=== PATIENT | male | born 1990 | race Caucasian/White ===

== ENCOUNTER → 2019-03-22 | Outpatient (CLI) | payer BC ==
[2019-03-22 17:58] LABS: BILIRUBIN,URINE NEGATIVE (NEGATIVE); CLARITY,URINE CLEAR; COLOR,URINE YELLOW; GLUCOSE, URINE (UA) NEGATIVE (NEGATIVE); KETONES,URINE NEGATIVE (NEGATIVE); LEUKOCYTE ESTERASE ,URINE NEGATIVE (NEGATIVE); NITRITE,URINE NEGATIVE (NEGATIVE); PH,URINE 5.5 (5-9); PROTEIN,URINE NEGATIVE (NEGATIVE); UROBILINOGEN,URINE 0.2 MG/DL (NORMAL)
[2019-03-22 19:58] LABS: ALANINE AMINOTRANSFERASE 35 U/L (0-55); ALKALINE PHOSPHATASE 81 U/L (40-136); BILIRUBIN,TOTAL 0.4 MG/DL (0.1-1.0); BUN/CREATININE RATIO 14; CALCIUM 9.1 MG/DL (8.5-10.1); CARBON DIOXIDE 24 MMOL/L (21-32); CHLORIDE 96 MMOL/L (98-107); CREATININE SERUM 1.06 MG/DL (0.60-1.30); GFR ESTIMATED > 60; GLUCOSE 146 MG/DL (70-105); POTASSIUM 3.8 MMOL/L (3.6-5.0); SODIUM 135 MMOL/L (135-145)
[2019-03-22 19:59] LABS: ALBUMIN 4.4 GM/DL (3.2-4.5); TOTAL PROTEIN 7.9 GM/DL (6.4-8.2)
== END ==
LOC: LAB FS 17:38
PROVIDERS: ATTEND Family Medicine
DX: R34 Anuria and oliguria (principal)
CPT/HCPCS: 36415; 80053; 81000; 96374

== ENCOUNTER 2019-04-16 06:56 | Emergency (ER) | payer BC ==
[~2019-04-16] VITALS: Ht 180.3 cm; Wt 1.7 kg
--- NOTE | 2019-04-16 07:03 | ED Headache ---
General Stated Complaint: MIGRAINE History of Present Illness Date Seen by Provider: Apr 16, 2019 Time Seen by Provider: 07:03 Initial Comments migraine headache Severity/Quality: moderate, throbbing Location: frontal Prior Headaches/Recent Trauma: occasional headaches Associated Symptoms: vision changes Allergies and Home Medications Allergies Coded Allergies: cefdinir (Verified Allergy, Unknown, 04/16/19) Home Medications [fioricet] , 1 TAB BID PRN Prescribed by: MARIE SCHNEIDER on 04/16/19 0732 Patient Home Medication List Home Medication List Reviewed: Yes Review of Systems Review of Systems Constitutional: no symptoms reported Eyes: Photophobia Ears, Nose, Mouth, Throat: no symptoms reported Respiratory: no symptoms reported Cardiovascular: no symptoms reported Gastrointestinal: no symptoms reported Genitourinary: no symptoms reported Musculoskeletal: no symptoms reported Skin: no symptoms reported Psychiatric/Neurological: See HPI, Headache All Other Systems Reviewed Negative Unless Noted: Yes Past Tbjdjrr-Ozitbm-[id number] Hx Patient Social History Recent Foreign Travel: No Contact w/Someone Who Travel: No Physical Exam Vital Signs Vital Signs - First Documented 04/16/19 07:02 Temp 97.0 Pulse 82 Resp 18 B/P (MAP) 125/64 (84) Pulse Ox 94 O2 Delivery Room Air Capillary Refill : Height, Weight, BMI Height: '" Weight: lbs. oz. kg; BMI Method: General Appearance: no apparent distress HEENT: photophobia Neck: full range of motion Cardiovascular: regular rate, rhythm Respiratory: no respiratory distress, no accessory muscle use Extremities: normal range of motion Psychiatric: alert, oriented x 3 Crainal Nerves: normal hearing, normal speech, PERRL Coordination/Gait: normal gait Motor/Sensory: no motor deficit, no sensory deficit Skin: normal color, warm/dry Lymphatic: no adenopathy Progress/Results/Core Measures Results/Orders My Orders Orders - MARIE SHARIF MD Ketorolac Injection (Toradol Injection) (04/16/19 07:30) Promethazine Injection (Phenergan Injec (04/16/19 07:30) Lorazepam Tablet (Ativan Tablet) (04/16/19 07:24) Ketorolac Injection (Toradol Injection) (04/16/19 07:30) Pending Discharge Order (04/16/19 07:39) Promethazine Injection (Phenergan Injec (04/16/19 07:30) Lorazepam Tablet (Ativan Tablet) (04/16/19 07:31) Im/Sub-Q Injection Non-Ab Ed (04/16/19 ) Vital Signs/I&O 04/16/19 04/16/19 07:02 07:45 Temp 97.0 97.0 Pulse 82 82 Resp 18 18 B/P (MAP) 125/64 (84) 125/64 (84) Pulse Ox 94 94 O2 Delivery Room Air Progress Progress Note : Time: 07:18 Progress Note Patient has history of infrequent migraine headaches. He has been evaluated by his primary care doctor in the past with CT scans and other testing but has never seen a neurologist. Most recent migraine episode was a urine half ago. Th is one started on . Today is Tuesday. Onset was about 4:15 S till about 7. This resolved with one ibuprofen. On Tuesday from 8:30 Tuesday morning it lasted for 1-2 hours and responded to Tylenol. Tuesday in the morning he woke with a headache work most of the day and went home and slept for 5 hours. 8 Advil and then that resolved. This morning he woke up with a headache that he didn't take any medications. In the past years, got shots is here now. He has a frontal headache and behind the eyes and because of the front part of his head. It is no nausea or vomiting. He does have photophobia. In the spring light sensitive. He works at a [employer]. He takes lisinopril and hydrochlorothiazide only for his hypertension. He is not on any prophylactic medications for his headache syndrome symptoms infrequent. His exam is unremarkable other than the photophobia. This is consistent with prior presentations and I think we can assist him with help for rest through the rest of the day. I will also given a prescription for Fioricet. I have advised him if he has persistent or recurring headaches he should discuss with his primary doctor a prophylactic management program. He is in agreement with this. Initial ECG Impression Date: Apr 16, 2019 Departure Impression Primary Impression: Migraine Qualified Codes: G43.009 - Migraine without aura, not intractable, without status migrainosus Disposition: 01 HOME, SELF-CARE Condition: Improved Departure-Patient Inst. Referrals: KILEY ZEE MD (PCP/Family) Primary Care Physician Scripts [fioricet] No Conflict Check 1 TAB BID PRN for headache for 10 Days, #30 TAB 0 Refills Prov: MARIE SHARIF MD 04/16/19 MARIE SHARIF MD Apr 16, 2019 07:03
[2019-04-16] MEDS ORDERED: LORazepam 0.5 MG (ATIVAN) TABLET PO STA (07:24)
[2019-04-16] MEDS ORDERED: KETOROLAC 30 MG/ML VIAL ONE (07:30)
[2019-04-16] MEDS ORDERED: PROMETHAZINE INJ 25 MG/ML (PHENERGAN) AMP IM ONE (07:30)
[2019-04-16] MEDS ORDERED: KETOROLAC 60 MG/2 ML VIAL IM ONE (07:30)
[2019-04-16] MEDS ORDERED: PROMETHAZINE INJ 25 MG/ML (PHENERGAN) AMP ONE (07:30)
[2019-04-16] MEDS ORDERED: LORazepam 0.5 MG (ATIVAN) TABLET ONE (07:31)
[2019-04-16] MEDS ORDERED: fioricet (07:32)
[2019-04-16 07:45] VITALS: BP 125/64
--- OUTSIDE RECORDS SUMMARY | 2019-04-16 17:25 | XMS REPORT ---
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 Name Role Phone DORINDA ROACH Unavailable PROBLEMS Type Condition ICD9-CM Code [id number] Code Onset Dates Condition Status SNOMED Code Problem Torn ACL (anterior cruciate ligament) 844.2 Aug, 0 86534914 Problem MRSA (methicillin resistant Staphylococcus aureus) 041.12 Mar, 0 685259775 Problem Periumbilical hernia 553.1 Apr, 0 130059887 Problem Morbid obesity with BMI of 40.0-44.9, adult 278.01 Jul, 0 735191903 Problem Syncope 780.2 Apr, 0 235237390 Problem Left knee pain 719.46 Sep, 0 854145165 Problem HTN (hypertension), benign 401.1 Feb, 0 36547707 Problem Attention deficit disorder without mention of hyperactivity F98.8 0 Problem Tobacco use Z72.0 Jul, 0 833461169 Problem Periumbilical hernia K42.9 Apr, 0 529853959 Problem Asthma J45.909 Apr, 0 975710677 Problem Pilonidal cyst 685.1 Mar, 0 63731111 Problem Precordial pain R07.2 Feb, 0 63524989 Problem Precordial pain 786.51 Feb, 0 82585987 Problem Asthma 493.90 Apr, 0 764337713 Problem Torn ACL (anterior cruciate ligament) S83.519A Aug, 0 12839734 Problem Parotiditis 527.2 Mar, 0 46392619 Problem Cigarette nicotine dependence, uncomplicated 305.1 Jul, 0 918953650 Problem Unspecified asthma(493.90) J45.909 0 25421030 Problem Parotiditis K11.20 Mar, 0 76071800 Problem HTN (hypertension), benign I10 Feb, 0 00985536 Problem Status post laparoscopic cholecystectomy V45.89 08 Apr, 2013 0 338550504 Problem Cigarette nicotine dependence, uncomplicated F17.210 Jul, 0 784543652 Problem Status post laparoscopic cholecystectomy Z90.49 08 Apr, 2013 0 210283044 Problem Syncope R55 14 Apr, 2014 0 224962004 Problem Dyslipidemia E78.5 Feb, 0 575521469 Problem Attention deficit disorder without mention of hyperactivity 314.00 0 46142565 Problem Essential hypertension I10 Active 57674353 Problem Tobacco use 305.1 Jul, 0 390692840 Problem Dyslipidemia 272.4 Feb, 0 881183426 Problem Pilonidal cyst L05.91 Mar, 0 20431715 Problem Morbid obesity with BMI of 40.0-44.9, adult E66.01 Jul, 0 543926836 Problem MRSA (methicillin resistant Staphylococcus aureus) A49.02 Mar, 0 741714010 Problem Left knee pain M25.562 Sep, 0 932135689 ALLERGIES Substance Reaction Event Type Date Status CEFDINIR Itching Drug Allergy Nov, Active ENCOUNTERS Encounter Location Date Diagnosis [address] [address] Feb, Decreased urine output R34 and Flank pain R10.[address] [address] Feb, [facility] WALK IN [facility] [address] [place] [address] Feb, [facility] WALK IN [address] [address] Feb, Abscess of back L02.212 ; Cellulitis of trunk, unspecified site of trunk L03.319 and Morbid obesity E66.[address] [address] Feb, [address] [address] January, Essential hypertension I10 and Morbid obesity E66.01 [facility]ALK IN [facility] [address] [place] [address] Nov, Acute diffuse otitis externa of left ear H60.312 and Morbid obesity E66.01 [facility] [place] [address] [place] [address] Nov, [facility] [id number] [address] Aug, [facility] [address] [address] Aug, [facility] [address] [address] Sep, Adjustment disorder with mixed anxiety and depressed mood F43.23 ; Generalized anxiety disorder F41.1 and Major depression, recurrent F33.9 [facility] [id number] [address] Jun, [facility] [address] [address] Jun, IMMUNIZATIONS No Known Immunizations SOCIAL HISTORY Never Assessed REASON FOR VISIT left ear pain with drainagex 24 hr [facility] PLAN OF CARE Activity Details Follow Up if not improving with PCP or reg follow up Reason: VITAL SIGNS Height 70 in 2018-12-10 Weight 314 lbs 2018-12-10 Temperature 97.9 degrees Fahrenheit 2018-12-10 Heart Rate 84 bpm 2018-12-10 Respiratory Rate 18 2018-12-10 Oximetry 98 % 2018-12-10 BMI 45.05 kg/m2 2018-12-10 Blood pressure systolic 148 mmHg 2018-12-10 Blood pressure diastolic 84 mmHg 2018-12-10 MEDICATIONS Medication Instructions Dosage Frequency Start Date End Date Duration Status Lisinopril-Hydrochlorothiazide 20-25 MG Orally Once a day 1 tablet 24h 15 Nov, 2018 90 days Active Ofloxacin 0.3 % Otic every 12 hrs 10 drops into affected ear 12h 17 Nov, 2018 7 day(s) Active RESULTS No Results PROCEDURES No Known procedures INSTRUCTIONS MEDICATIONS ADMINISTERED No Known Medications MEDICAL (GENERAL) HISTORY Type Description Date Medical History hypertension Surgical History cholecystectomy Surgical History wisdom teeth extraction Surgical History vasectomy Hospitalization History see surgeries
--- OUTSIDE RECORDS SUMMARY | 2019-04-16 17:26 | XMS REPORT ---
Author Author KILEY ZEE Organization [facility] Address [address] [place] [address] Care Team Providers Care Red Leader Name Role Phone KILEY ZEE Unavailable PROBLEMS Type Condition ICD9-CM Code GID18-DO Code Onset Dates Condition Status SNOMED Code Problem Torn ACL (anterior cruciate ligament) 844.2 Aug, 0 54834486 Problem MRSA (methicillin resistant Staphylococcus aureus) 041.12 Mar, 0 976943149 Problem Periumbilical hernia 553.1 Apr, 0 938173305 Problem Morbid obesity with BMI of 40.0-44.9, adult 278.01 Jul, 0 235751765 Problem Syncope 780.2 Apr, 0 128238041 Problem Left knee pain 719.46 Sep, 0 453682355 Problem HTN (hypertension), benign 401.1 Feb, 0 76829088 Problem Attention deficit disorder without mention of hyperactivity F98.8 0 Problem Tobacco use Z72.0 Jul, 0 440835015 Problem Periumbilical hernia K42.9 Apr, 0 937898586 Problem Asthma J45.909 Apr, 0 028422428 Problem Pilonidal cyst 685.1 Mar, 0 57103529 Problem Precordial pain R07.2 Feb, 0 73915581 Problem Precordial pain 786.51 Feb, 0 16167181 Problem Asthma 493.90 Apr, 0 535500222 Problem Torn ACL (anterior cruciate ligament) S83.519A Aug, 0 87077075 Problem Parotiditis 527.2 Mar, 0 27605637 Problem Cigarette nicotine dependence, uncomplicated 305.1 Jul, 0 236044013 Problem Unspecified asthma(493.90) J45.909 0 50297904 Problem Parotiditis K11.20 Mar, 0 64399233 Problem HTN (hypertension), benign I10 Feb, 0 92503405 Problem Status post laparoscopic cholecystectomy V45.89 08 Apr, 2013 0 414650282 Problem Cigarette nicotine dependence, uncomplicated F17.210 Jul, 0 774110850 Problem Status post laparoscopic cholecystectomy Z90.49 08 Apr, 2013 0 175636207 Problem Syncope R55 14 Apr, 2014 0 624075591 Problem Dyslipidemia E78.5 Feb, 0 544783289 Problem Attention deficit disorder without mention of hyperactivity 314.00 0 48938139 Problem Essential hypertension I10 Active 31882735 Problem Tobacco use 305.1 Jul, 0 567168870 Problem Dyslipidemia 272.4 Feb, 0 122808739 Problem Pilonidal cyst L05.91 13 Mar, 2011 0 12613765 Problem Morbid obesity with BMI of 40.0-44.9, adult E66.01 Jul, 0 371753886 Problem MRSA (methicillin resistant Staphylococcus aureus) A49.02 Mar, 0 653462487 Problem Left knee pain M25.562 Sep, 0 663929884 ALLERGIES No Information ENCOUNTERS Encounter Location Date Diagnosis [address] [address] Feb, Decreased urine output R34 and Flank pain R10.[address] [address] Feb, [facility] [address] [place] [address] Feb, [facility]ALK IN [address] [place] [address] Feb, Abscess of back L02.212 ; Cellulitis of trunk, unspecified site of trunk L03.319 and Morbid obesity E66.[address] [address] Feb, [address] [address] January, Essential hypertension I10 and Morbid obesity E66.01 [facility]ALK IN [facility] [address] [place] [address] Nov, Acute diffuse otitis externa of left ear H60.312 and Morbid obesity E66.[address] [address] Nov, [facility] [id number] [address] Aug, [facility] [id number] [address] Aug, [facility] [address] [place] [address] Sep, Adjustment disorder with mixed anxiety and depressed mood F43.23 ; Generalized anxiety disorder F41.1 and Major depression, recurrent F33.9 [facility] [id number] [address] Jun, [facility] [id number] [address] Jun, IMMUNIZATIONS No Known Immunizations SOCIAL HISTORY Never Assessed REASON FOR VISIT med refill PLAN OF CARE VITAL SIGNS MEDICATIONS Medication Instructions Dosage Frequency Start Date End Date Duration Status Lisinopril-Hydrochlorothiazide 20-25 MG Orally Once a day 1 tablet 24h Nov, 90 days Active RESULTS No Results PROCEDURES No Known procedures INSTRUCTIONS MEDICATIONS ADMINISTERED No Known Medications MEDICAL (GENERAL) HISTORY Type Description Date Medical History hypertension Surgical History cholecystectomy Surgical History wisdom teeth extraction Surgical History vasectomy Hospitalization History see surgeries
--- OUTSIDE RECORDS SUMMARY | 2019-04-16 17:26 | XMS REPORT | Continuity of Care Document ---
Author Organization Unknown Address Unknown Allergies There is no data. Medications There is no data. Problems There is no data. Procedures There is no data. Results Test Result Range LIPID PANEL - 02/16/19 14:00 CHOLESTEROL, TOTAL 243 mg/dL <200 HDL CHOLESTEROL 44 mg/dL >40 TRIGLYCERIDES 149 mg/dL <150 LDL-CHOLESTEROL 170 mg/dL (calc) NRG CHOL/HDLC RATIO 5.5 (calc) <5.0 NON HDL CHOLESTEROL 199 mg/dL (calc) <130 CMP - 02/16/19 14:00 GLUCOSE 97 mg/dL 65-99 UREA NITROGEN (BUN) 14 mg/dL 7-25 CREATININE 1.03 mg/dL 0.60-1.35 eGFR NON-AFR. IRISH 97 mL/min/1.73m2 > OR=60 eGFR 112 mL/min/1.73m2 > OR=60 BUN/CREATININE RATIO NOT APPLICABLE (calc) 6-22 SODIUM 136 mmol/L 135-146 POTASSIUM 3.9 mmol/L 3.5-5.3 CHLORIDE 99 mmol/L 98-110 CARBON DIOXIDE 26 mmol/L 20-32 CALCIUM 9.6 mg/dL 8.6-10.3 PROTEIN, TOTAL 7.5 g/dL 6.1-8.1 ALBUMIN 4.7 g/dL 3.6-5.1 GLOBULIN 2.8 g/dL (calc) 1.9-3.7 ALBUMIN/GLOBULIN RATIO 1.7 (calc) 1.0-2.5 BILIRUBIN, TOTAL 0.5 mg/dL 0.2-1.2 ALKALINE PHOSPHATASE 76 U/L 40-115 AST 24 U/L 10-40 ALT 41 U/L 9-46 CULTURE, ANAEROBIC AND AEROBIC - 02/28/19 18:47 CULTURE, ANAEROBIC BACTERIA W/GRAM STAIN SEE NOTE NRG CULTURE, AEROBIC BACTERIA SEE NOTE NRG Encounters ACCT No. Visit Date/Time Discharge Status Pt. Type Provider Facility Loc./Unit Complaint [id number] 02/28/2019 18:00:00 02/28/2019 23:59:59 [facility] Outpatient KILEY ZEE [facility] [id number] 02/28/2019 18:00:00 Document Registration [id number] 02/16/2019 13:30:00 Document Registration
== END 2019-04-16 07:45 | disposition home or self-care (01) ==
LOC: EDUNIT# 06:56 → ER FS 06:57
DX: G43.909 Migraine, unspecified, not intractable, without status migrainosus (principal); Z88.1 Allergy status to other antibiotic agents
CPT/HCPCS: 96372; 99284

== ENCOUNTER 2019-10-29 12:47 | Emergency (ER) | payer BC ==
[~2019-10-29] VITALS: Ht 180 cm; Wt 148.5 kg
[~2019-10-29 12:47] MED LIST: fioricet
[2019-10-29] MEDS ORDERED: RT-ALBUTEROL/IPRATROPIUM 3 ML (DUONEB) VIAL INH ONE (13:00)
[2019-10-29] MEDS ORDERED: predniSONE 20 MG TAB PO ONE (13:00)
--- NOTE | 2019-10-29 13:03 | ED Respiratory ---
General Chief Complaint: Respiratory Problems Stated Complaint: SOB Source: patient, family History of Present Illness Date Seen by Provider: Oct 29, 2019 Time Seen by Provider: 12:59 Initial Comments Patient presents with 1 month of shortness of air and wheezing. Symptoms have not resolved, although he has seen his doctor more than once and has been given a burst of steroids twice with some improvement although no resolution. He denies fever or chills. Wheezing and shortness of air worse with exertion. He does have a history of asthma as a child, however has not had this type of wheezing and shortness of air as an adult. He does admit he was a smoker and quit 4 months ago and has been doing fine up until now. Modifying Factors: Worse With Activity; Improves With Albuterol Inhaler Associated Symptoms: No chest pain/soreness; cough; No fever/chills, No nasal congestion, No nasal drainage; shortness of breath; No sinus infection, No sore throat; wheezing Allergies and Home Medications Allergies Coded Allergies: cefdinir (Verified Allergy, Unknown, 04/16/19) Home Medications Fluticasone Propion/Salmeterol 1 Each Blst.w.dev, 1 EACH IH BID Prescribed by: KAL HERRERASTYA on 10/29/19 1330 Ipratropium/Albuterol Sulfate 3 Ml Ampul.neb, 3 ML IH Q6H PRN for SHORTNESS OF BREATH Prescribed by: KAL HERRERASTYA on 10/29/19 1330 Prednisone 50 Mg Tab, 50 MG PO DAILY Prescribed by: KAL HERRERASTYA on 10/29/19 1330 [fioricet] , 1 TAB BID PRN Prescribed by: MARIE SCHNEIDER on 04/16/19 0732 Patient Home Medication List Home Medication List Reviewed: Yes Review of Systems Review of Systems Constitutional: see HPI; No dizziness, No fever, No malaise, No weakness EENTM: see HPI, no symptoms reported Respiratory: see HPI, cough, dyspnea on exertion, short of breath, wheezing Cardiovascular: see HPI; No chest pain, No palpitations Gastrointestinal: No abdominal pain, No loss of appetite, No nausea, No vomiting Musculoskeletal: No back pain, No joint pain Skin: No change in color, No pruritus, No rash Past Oqatmrg-Rqshod-Vljfpd Hx Past Med/Social Hx: Reviewed Nursing Past Med/Soc Hx Patient Social History Alcohol Use: Denies Use Recreational Drug Use: No Smoking Status: Former Smoker (quit Jun 2019) Type Used: Cigarettes 2nd Hand Smoke Exposure: No Recent Foreign Travel: No Recent Hopitalizations: No Physical Abuse: No Sexual Abuse: No Mistreated: No Fear: No Seasonal Allergies Seasonal Allergies: No Past Medical History Surgeries: Yes ([place] teeth removal) Gallbladder Respiratory: No Cardiac: Yes Hypertension Neurological: No Genitourinary: No Gastrointestinal: No Musculoskeletal: No Endocrine: No HEENT: No Cancer: No Psychosocial: No Integumentary: No Blood Disorders: No Physical Exam Vital Signs - First Documented 10/29/19 12:56 Temp 37.1 Pulse 114 Resp 20 B/P (MAP) 178/90 (119) Pulse Ox 93 O2 Delivery Room Air Capillary Refill : Height: 5'11.00" Weight: 3lbs. 11.0oz. 1.627468dd; BMI Method:Stated General Appearance: WD/WN, no apparent distress; No mild distress HEENT: PERRL/EOMI, normal ENT inspection, TMs normal, pharynx normal Neck: non-tender, supple, normal inspection Respiratory: chest non-tender, no respiratory distress, no accessory muscle use, decreased breath sounds; No crackles; wheezing (audible wheezes throughout. ) Extremities: non-tender, normal inspection, no pedal edema, normal capillary refill Progress/Results/Core Measures Suspected Sepsis SIRS Temperature: Pulse: Respiratory Rate: Blood Pressure / Mean: Results/Orders My Orders Orders - ROVENSTINE,KAL L DO Prednisone Tablet (Deltasone Tablet) (10/29/19 13:00) Albuterol/Ipra Inhalation Soln (Duoneb I (10/29/19 13:00) Svn Small Volume Nebulizer (10/29/19 12:58) Chest Pa/Lat (2 View) (10/29/19 13:00) Medications Given in ED Current Medications Medications Dose Ordered Sig/Marla Route Start Time Stop Time Status Last Admin Dose Admin Albuterol/ Ipratropium 3 ml ONCE ONCE INH 10/29/19 13:00 10/29/19 13:01 DC 10/29/19 13:04 3 ML Prednisone 50 mg ONCE ONCE PO 10/29/19 13:00 10/29/19 13:01 DC 10/29/19 13:03 50 MG Vital Signs/I&O 10/29/19 10/29/19 12:56 13:47 Temp 37.1 37.1 Pulse 114 101 Resp 20 18 B/P (MAP) 178/90 (119) 148/62 Pulse Ox 93 93 O2 Delivery Room Air Room Air Capillary Refill : Progress Note : Time: 13:25 Progress Note Mild to moderate clinical improvement after Duoneb. Discussed rx's for increased oral steroid and adding an inhaled steroid to use for a few weeks. Also adding duoneb solution (as he has a nebulizer at home) 1345 Much better, states feeling great. RE-examined and still w exp wheezes and rhonchi, but much improved aeration. Departure Impression Primary Impression: Asthma with exacerbation Qualified Codes: J45.41 - Moderate persistent asthma with (acute) exacerbation Disposition: HOME, SELF-CARE Condition: Improved Departure-Patient Inst. Referrals: KILEY ZEE MD (PCP/Family) Primary Care Physician Patient Instructions: Asthma in Adults, Rescue vs Controller Inhalers, Inhaled Corticosteroid Medicines Add. Discharge Instructions: See your Doctor in 3 days if you are not improving, otherwise in 1 week. Go to the nearest ER if you are worse. All discharge instructions reviewed with patient and/or family. Voiced understanding. Scripts Prednisone (Prednisone) 50 Mg Tab 50 MG PO DAILY, #10 TAB Prov: SHARONSTKAL PANDYA DO 10/29/19 Ipratropium/Albuterol Sulfate (Iprat-Albut 0.5-3(2.5) mg/3 ml) 3 Ml Ampul.neb 3 ML IH Q6H PRN for SHORTNESS OF BREATH, #30 EACH Prov: SHARONSTINEKAL L DO 10/29/19 Fluticasone Propion/Salmeterol (Fluticasone-Salmeterol 250-50) 1 Each Blst.w.dev 1 EACH IH BID, #1 INHALER Prov: SHARONSTINEKAL L DO 10/29/19 Work/School Note: Work Release Form Date Seen in the Emergency Department: Oct 29, 2019 Return to Work: Oct 30, 2019 Restrictions: No Restrictions SHARONSTKAL PANDYA DO Oct 29, 2019 13:03
--- NOTE | 2019-10-29 13:23 | Diagnostic Imaging Report ---
INDICATION: Cough and wheezing. COMPARISON: None. FINDINGS: Frontal and lateral views of the chest demonstrate normal heart size and pulmonary vascularity. The lungs are clear. There are no signs of infiltrate, pleural effusions, or pneumothoraces. The visualized osseous structures show no acute abnormalities. IMPRESSION: No acute process. No signs of infiltrates, effusions, or pneumothoraces. Dictated by: Dictated on workstation # [id number]
[2019-10-29] MEDS ORDERED: PRD50T PO (13:30)
[2019-10-29] MEDS ORDERED: IPRA3AMP31 IH (13:30)
[2019-10-29] MEDS ORDERED: FLUT1BLS12 IH (13:30)
[2019-10-29 13:47] VITALS: BP 148/62
== END 2019-10-29 13:42 | disposition home or self-care (01) ==
LOC: EDUNIT# 12:47 → ER FS 12:48
DX: J45.901 Unspecified asthma with (acute) exacerbation (principal); I10 Essential (primary) hypertension; Z88.1 Allergy status to other antibiotic agents; Z87.891 Personal history of nicotine dependence
CPT/HCPCS: 71046

== ENCOUNTER 2019-11-11 16:20 | Emergency (ER) | payer BC ==
[~2019-11-11] VITALS: Ht 180.3 cm; Wt 149.0 kg
[~2019-11-11 16:20] MED LIST changes: +FLUT1BLS12 IH; +IPRA3AMP31 IH; +PRD50T PO
--- NOTE | 2019-11-11 16:46 | ED General ---
General Chief Complaint: Cough/Cold/Flu Symptoms Stated Complaint: SOA Source of Information: Patient History of Present Illness Date Seen by Provider: Nov 11, 2019 Time Seen by Provider: 16:46 Initial Comments Patient is a 29-year-old male with past medical history significant for asthma who comes to the emergency department tonight complaining of exacerbation type symptoms. He does use nebulized solution at home and he ran out of his medications earlier this evening. He complains of being ill over the last week. He had been treated with prednisone last week along with a azithromycin. He completed his prednisone over 5 days earlier. No fever or chills. His cough is not productive. It is wheezy. He overall feels improved compared to last week but his asthma symptoms have worsened since stopping the prednisone. No chest pain. Allergies and Home Medications Allergies Coded Allergies: cefdinir (Verified Allergy, Unknown, 04/16/19) Home Medications Fluticasone Propion/Salmeterol 1 Each Blst.w.dev, 1 EACH IH BID Prescribed by: KAL BARFIELD on 10/29/19 1330 Ipratropium/Albuterol Sulfate 3 Ml Ampul.neb, 3 ML IH Q6H PRN for SHORTNESS OF BREATH Prescribed by: KAL BARFIELD on 10/29/19 1330 Prednisone 50 Mg Tab, 50 MG PO DAILY Prescribed by: KAL BARFIELD on 10/29/19 1330 [fioricet] , 1 TAB BID PRN Prescribed by: MARIE SCHNEIDER on 04/16/19 0732 Patient Home Medication List Home Medication List Reviewed: Yes Review of Systems Review of Systems Constitutional: no symptoms reported EENTM: no symptoms reported Respiratory: see HPI Cardiovascular: no symptoms reported Genitourinary: no symptoms reported Musculoskeletal: no symptoms reported Skin: no symptoms reported All Other Systems Reviewed Negative Unless Noted: Yes Past Bdlcdwn-Syffmm-Cmbrgx Hx Patient Social History Type Used: Cigarettes 2nd Hand Smoke Exposure: No Recent Hopitalizations: No Seasonal Allergies Seasonal Allergies: No Past Medical History Surgeries: Yes ([place] teeth removal) Gallbladder Respiratory: No Cardiac: Yes Hypertension Neurological: No Genitourinary: No Gastrointestinal: No Musculoskeletal: No Endocrine: No HEENT: No Cancer: No Psychosocial: No Integumentary: No Blood Disorders: No Physical Exam Vital Signs Capillary Refill : Height, Weight, BMI Height: 5'11.00" Weight: 3lbs. 11.0oz. 1.912952cc; 45.00 BMI Method:Stated General Appearance: No Apparent Distress, WD/WN HEENT: PERRL/EOMI Neck: Full Range of Motion Respiratory: Other (mild increased work of breathing. Wheezes bilaterally in all [place].) Cardiovascular: Regular Rate, Rhythm Extremity: Normal Capillary Refill Neurologic/Psychiatric: Alert, Oriented x3 Progress/Results/Core Measures Suspected Sepsis SIRS Temperature: Pulse: Respiratory Rate: Blood Pressure / Mean: Results/Orders Micro Results Microbiology 11/11/19 Influenza Types A,B Antigen (LEANDRO) - Final, Complete My Orders Orders - CRISTIAN PATRICIA DO Influenza A And B Antigens (11/11/19 16:46) Prednisone Tablet (Deltasone Tablet) (11/11/19 17:15) Albuterol/Ipra Inhalation Soln (Duoneb I (11/11/19 17:15) Svn Small Volume Nebulizer (11/11/19 17:12) Albuterol Pre-Mix Nebs (Rt) (Proventil (11/11/19 17:30) Svn Small Volume Nebulizer (11/11/19 17:28) Albuterol Pre-Mix Nebs (Rt) (Proventil (11/11/19 18:30) Svn Small Volume Nebulizer (11/11/19 18:30) Medications Given in ED Current Medications Medications Dose Ordered Sig/Marla Route Start Time Stop Time Status Last Admin Dose Admin Albuterol Sulfate 2.5 mg ONCE ONCE INH 11/11/19 17:30 11/11/19 17:31 DC 11/11/19 17:53 2.5 MG Albuterol/ Ipratropium 3 ml ONCE ONCE INH 11/11/19 17:15 11/11/19 17:16 DC 11/11/19 17:38 3 ML Prednisone 60 mg ONCE ONCE PO 11/11/19 17:15 11/11/19 17:16 DC 11/11/19 17:38 60 MG Vital Signs/I&O Capillary Refill : Progress Note : Time: 17:15 Progress Note ED summary: Patient is a 29-year-old male with known history of asthma. He comes to the ER with exacerbation. He has already been treated with a course of antibiotics. In the ER, he is given 3 total nebulized treatments. His symptoms subjectively improved and his lung sounds are clear at the time of discharge. He is requesting refill of his albuterol nebulized solution. No indication for additional antibiotics today but we will put him on another course of prednisone at home. He was given the first dose in the ER. Incidentally, the patient states he misplaced his blood pressure medication. He normally takes Zestoretic /. A refill of this is provided for him this evening as he is noted to have high blood pressure. Patient is agreeable to the discharge plan of care. All of his questions were answered. Departure Impression Primary Impression: Asthma exacerbation Disposition: HOME, SELF-CARE Condition: Improved Departure-Patient Inst. Referrals: KILEY ZEE MD (PCP/Family) Primary Care Physician CRISTIAN PATRICIA DO Nov 11, 2019 16:46
[2019-11-11] MEDS ORDERED: predniSONE 20 MG TAB PO ONE (17:15)
[2019-11-11] MEDS ORDERED: RT-ALBUTEROL/IPRATROPIUM 3 ML (DUONEB) VIAL INH ONE (17:15)
[2019-11-11] MEDS ORDERED: RT-ALBUTEROL SULF 2.5 MG/3 ML PRE-MIX VIAL INH ONE ×2 (17:30→18:30)
[2019-11-11] MEDS ORDERED: LISI-593 PO (18:51)
[2019-11-11] MEDS ORDERED: PRD20T PO (18:51)
[2019-11-11] MEDS ORDERED: ALBU2.5V4 INH (18:51)
[2019-11-11 19:06] VITALS: BP 152/107
== END 2019-11-11 19:06 | disposition home or self-care (01) ==
LOC: EDUNIT# 16:20 → ER FS 16:21
DX: J45.901 Unspecified asthma with (acute) exacerbation (principal); Z88.1 Allergy status to other antibiotic agents; Z79.51 Long term (current) use of inhaled steroids
CPT/HCPCS: 87804; 94640

== ENCOUNTER → 2019-11-16 | Outpatient (CLI) | payer BC ==
[~2019-11-16] MED LIST changes: +ALBU2.5V4 INH; +LISI-593 PO; +PRD20T PO
--- NOTE | 2019-11-16 11:44 | Diagnostic Imaging Report ---
Indication: Shortness of breath PA and lateral chest There appears be some patchy infiltrate in the right lower lateral chest. Heart size and pulmonary vasculature are normal. Lungs are clear. There are no effusions or pneumothoraces. IMPRESSION: There is a patchy alveolar opacity in the right lung suspicious for pneumonia. Dictated by: Dictated on workstation # [id number]
== END ==
LOC: RAD FS 11:30
PROVIDERS: ATTEND Family Medicine
DX: R06.02 Shortness of breath (principal); R06.2 Wheezing; R91.8 Other nonspecific abnormal finding of lung field
CPT/HCPCS: 71046

== ENCOUNTER 2020-02-12 10:23 | Observation (INO) | payer BC ==
[~2020-02-12] VITALS: Ht 180.3 cm; Wt 148.6 kg
[2020-02-12] MEDS ORDERED: ASPIRIN 81 MG CHEW (CHILDREN'S ASA) PO ONE (10:45)
[2020-02-12] MEDS ORDERED: NS IV 1000 ML 1,000 ML IV SCH (10:45)
--- NOTE | 2020-02-12 10:47 | ED Cardiac General ---
History of Present Illness General Chief Complaint: Chest Pain Stated Complaint: NAUSEA; FEELS LIKE HE IS GOING TO PASS OUT Source: patient Exam Limitations: no limitations History of Present Illness Date Seen by Provider: February 12, 2020 Time Seen by Provider: 10:40 Initial Comments Patient presents to the ER following an episode of chest pressure which began at work couple hours prior to arrival. 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 Did have some sweating without nausea vomiting. Patient states this typically happens when he forgets to take his blood pressure medication, so he went home to take his blood pressure medication (lisinopril 20/HCTZ 25). States that afterwards the chest pressure was relieved somewhat, but he felt nauseated and like he was going to pass out so he came to the ER. Patient states this does happen when he forgets to take his blood pressure medicine, although he never checks his blood pressure he has assumed that it was high. Denies any history of heart disease, however he has seen a doper operator and was just told he needed to lose weight and he never followed up. Does relate a significant family history of heart disease and had 2 brothers who had heart attacks and his mother who also has heart disease. Allergies and Home Medications Allergies Coded Allergies: cefdinir (Verified Allergy, Unknown, 02/12/20) Home Medications Famotidine 20 Mg Tablet, 20 MG PO DAILY, (Reported) Lisinopril/Hydrochlorothiazide 1 Each Tablet, 1 EA PO DAILY, (Reported) Patient Home Medication List Home Medication List Reviewed: Yes Review of Systems Review of Systems Constitutional: see HPI, diaphoresis, dizziness; No fever; malaise; No weakness EENTM: No Symptoms Reported Respiratory: No Symptoms Reported; Denies Cough, Denies Shortness of Air, Denies Stridor, Denies Wheezing Cardiovascular: See HPI, Chest Pain; Denies Edema, Denies Irregular Heart Rate; Lightheadedness; Denies Palpitations, Denies Syncope Gastrointestinal: Denies Abdominal Pain; Nausea; Denies Poor Appetite, Denies Vomiting Musculoskeletal: No back pain, No joint pain Skin: No change in color, No lesions, No lumps, No rash Past Ovbluok-Dhtvvr-Smuzos Hx Past Med/Social Hx: Reviewed Nursing Past Med/Soc Hx Patient Social History Type Used: Cigarettes 2nd Hand Smoke Exposure: No Recent Hopitalizations: No Seasonal Allergies Seasonal Allergies: No Past Medical History Surgeries: Yes ([place] teeth removal) Gallbladder Respiratory: No Cardiac: Yes Hypertension Neurological: No Genitourinary: No Gastrointestinal: No Musculoskeletal: No Endocrine: No HEENT: No Cancer: No Psychosocial: No Integumentary: No Blood Disorders: No Physical Exam Vital Signs Vital Signs - First Documented 02/12/20 10:28 Temp 37.3 Pulse 88 Resp 18 B/P (MAP) 148/73 (98) Pulse Ox 95 O2 Delivery Room Air Capillary Refill : Height, Weight, BMI Height: 5'11.00" Weight: 3lbs. 11.0oz. 1.819044bt; 45.00 BMI Method:Stated General Appearance: No Apparent Distress, WD/WN, Anxious HEENT: PERRL/EOMI, Normal ENT Inspection Neck: Full Range of Motion, Normal Inspection, Non Tender, Supple Respiratory: Chest Non Tender, Lungs Clear Cardiovascular: Regular Rate, Rhythm, No Edema, No Gallop, No JVD, No Murmur, Normal Peripheral Pulses Gastrointestinal: Non Tender, Soft; No Distended, No Guarding Extremity: Normal Capillary Refill, Non Tender, No Calf Tenderness Neurologic/Psychiatric: Alert, Oriented x3, No Motor/Sensory Deficits, Normal Mood/Affect Skin: Normal Color, Warm/Dry Progress/Results/Core Measures Results/Orders Lab Results Laboratory Tests Test 02/12/20 10:39 Range/Units White Blood Count 8.8 4.3-11.0 10^3/uL Red Blood Count 5.23 4.35-5.85 10^6/uL Hemoglobin 15.4 13.3-17.7 G/DL Hematocrit 45 40-54 % Mean Corpuscular Volume 86 80-99 FL Mean Corpuscular Hemoglobin 29 25-34 PG Mean Corpuscular Hemoglobin Concent 34 32-36 G/DL Red Cell Distribution Width 14.5 10.0-14.5 % Platelet Count 296 130-400 10^3/uL Mean Platelet Volume 9.5 7.4-10.4 FL Neutrophils (%) (Auto) 72 42-75 % Lymphocytes (%) (Auto) 21 12-44 % Monocytes (%) (Auto) 6 0-12 % Eosinophils (%) (Auto) 1 0-10 % Basophils (%) (Auto) 0 0-10 % Neutrophils # (Auto) 6.3 1.8-7.8 X 10^3 Lymphocytes # (Auto) 1.9 1.0-4.0 X 10^3 Monocytes # (Auto) 0.6 0.0-1.0 X 10^3 Eosinophils # (Auto) 0.1 0.0-0.3 10^3/uL Basophils # (Auto) 0.0 0.0-0.1 10^3/uL Sodium Level 137 135-145 MMOL/L Potassium Level 3.6 3.6-5.0 MMOL/L Chloride Level 97 L 98-107 MMOL/L Carbon Dioxide Level 26 21-32 MMOL/L Anion Gap 14 5-14 MMOL/L Blood Urea Nitrogen 14 7-18 MG/DL Creatinine 0.97 0.60-1.30 MG/DL Estimat Glomerular Filtration Rate > 60 BUN/Creatinine Ratio 14 Glucose Level 112 H 70-105 MG/DL Calcium Level 9.6 8.5-10.1 MG/DL Corrected Calcium 8.5-10.1 MG/DL Total Bilirubin 0.8 0.1-1.0 MG/DL Aspartate Amino Transf (AST/SGOT) 28 5-34 U/L Alanine Aminotransferase (ALT/SGPT) 39 0-55 U/L Alkaline Phosphatase 66 40-136 U/L Troponin I < 0.30 <0.30 NG/ML Total Protein 7.8 6.4-8.2 GM/DL Albumin 4.6 H 3.2-4.5 GM/DL My Orders Orders - ROVENSTINE,KAL L DO Ed Iv/Invasive Line Start (02/12/20 10:40) Chest 1 View Ap/Pa Only (02/12/20 10:40) Ekg Tracing (02/12/20 10:40) Cbc With Automated Diff (02/12/20 10:40) Comprehensive Metabolic Panel (02/12/20 10:40) Troponin I Fs (02/12/20 10:40) Aspirin Chewable Tablet (Baby Aspirin Ch (02/12/20 10:45) Ns Iv 1000 Ml (Sodium Chloride 0.9%) (02/12/20 10:45) Nitroglycerin 0.4 Mg Btl 25's (Nitrostat (02/12/20 10:45) Ondansetron Injection (Zofran Injectio (02/12/20 11:00) Acetaminophen Tablet (Tylenol Tablet) (02/12/20 12:00) Medications Given in ED Current Medications Medications Dose Ordered Sig/Marla Route Start Time Stop Time Status Last Admin Dose Admin Acetaminophen 1,000 mg ONCE ONCE PO 02/12/20 12:00 02/12/20 12:07 DC 02/12/20 12:24 1,000 MG Aspirin 324 mg ONCE ONCE PO 02/12/20 10:45 02/12/20 10:46 DC 02/12/20 10:58 324 MG Nitroglycerin 0.4 mg NEEDED PRN SL 02/12/20 10:45 02/12/20 14:47 DC 02/12/20 11:57 0.4 MG Ondansetron HCl 4 mg ONCE ONCE IVP 02/12/20 11:00 02/12/20 11:01 DC 02/12/20 10:58 4 MG Vital Signs/I&O 02/12/20 02/12/20 10:28 10:28 Temp 37.3 Pulse 88 Resp 18 B/P (MAP) 148/73 (98) Pulse Ox 95 O2 Delivery Room Air Room Air Progress Progress Note : Progress Note Patient did have improvement of his chest pain with the first and second nitroglycerin from 8 out of 10-4 out of 10 intensity. He refused to take a third nitroglycerin because of his headache. Also reluctant for admission because he admits that he didn't want to leave town and he was actually a bit scared about going to the hospital. Discussed the benefits of hospitalization in allowing a more complete workup for possible cardiac etiology of his chest pain. Discussed the risk of going home AGAINST MEDICAL ADVICE possible OH or sudden . Patient agrees to stay. Initial ECG Impression Time: 10:32 Initial ECG Rate: 75 Initial ECG Rhythm: Normal Sinus Initial ECG Intervals: Normal Initial ECG Impression: Normal Diagnostic Imaging Diagonstic Imaging: Xray Plain Films/CT/US/NM/MRI: chest Comments Date of Exam:02/12/20 CHEST 1 VIEW AP/PA ONLY INDICATION: Chest tightness and presyncope. TECHNIQUE/COMPARISON: A frontal chest was obtained at 10:48 AM and compared to 11/16/2019. FINDINGS: The heart and mediastinal silhouette are normal in appearance. The lungs appear essentially clear. The bilateral infiltrates seen on 11/16/2019 appear resolved. There is no pneumothorax or pleural fluid. IMPRESSION: Negative chest with resolution of the infiltrates seen on 11/16/2019. Dictated on workstation # [id number] Dict: 02/12/20 1103 Trans: 02/12/20 1104 [id number] Interpreted by: MAYRA NUNEZ MD Electronically signed by: Departure Communication (Admissions) Time/Spoke to Admitting Phy: 12:[address] Quinteros to discuss pt's presentation of CP w normal ECG and initial Troponin w signif PMHx for HTN and signif FamHx of CAD. Agrees to accept for OBS admission. Impression Primary Impression: Chest pain Qualified Codes: R07.9 - Chest pain, unspecified Additional Impressions: Hypertension Qualified Codes: I10 - Essential (primary) hypertension Family history of early CAD Disposition: ADMITTED INPATIENT Condition: Stable Admissions Decision to Admit Reason: Admit from ER (General) Decision to Admit/Date: February 12, 2020 Time/Decision to Admit Time: 12:00 Departure-Patient Inst. Referrals: KILEY ZEE MD (PCP/Family) Primary Care Physician KAL BARFIELD DO February 12, 2020 10:47
[2020-02-12] MEDS: NITROGLYCERIN 0.4 MG SL TABS BTL 25'S SL PRN ×2 (10:58→11:57)
[2020-02-12] MEDS ORDERED: ONDANSETRON 4 MG/2 ML (SDV) Z0FRAN IVP ONE (11:00)
--- NOTE | 2020-02-12 11:04 | Diagnostic Imaging Report ---
INDICATION: Chest tightness and presyncope. TECHNIQUE/COMPARISON: A frontal chest was obtained at 10:48 AM and compared to 11/16/2019. FINDINGS: The heart and mediastinal silhouette are normal in appearance. The lungs appear essentially clear. The bilateral infiltrates seen on 11/16/2019 appear resolved. There is no pneumothorax or pleural fluid. IMPRESSION: Negative chest with resolution of the infiltrates seen on 11/16/2019. Dictated by: Dictated on workstation # [id number]
--- OUTSIDE RECORDS SUMMARY | 2020-02-12 11:13 | XMS REPORT | Continuity of Care Document ---
Author Organization Unknown Address Unknown Phone Unavailable Allergies Active Description Code Type Severity Reaction Onset Reported/Identified Relationship to Patient Clinical Status Yes cefdinir [id number] Drug Allergy Unknown N/A 04/16/2019 Medications There is no data. Problems Date Dx Coded Attending Type Code Diagnosis Diagnosed By 03/24/2019 YAYO LR, KILEY Martell Ot R34 ANURIA AND OLIGURIA 04/06/2019 YAYO LR, KILEY Martell Ot R34 ANURIA AND OLIGURIA 04/16/2019 KOLE LR, MARIE berg G43.909 MIGRAINE, UNSP, NOT INTRACTABLE, WITHOUT 04/16/2019 MARIE SHARIF MD R51 HEADACHE 04/16/2019 KOLE LR, MARIE berg Z88.1 ALLERGY STATUS TO OTHER ANTIBIOTIC AGENT 05/10/2019 KOLE LR, MARIE berg G43.909 MIGRAINE, UNSP, NOT INTRACTABLE, WITHOUT 05/10/2019 MARIE SHARIF MD R51 HEADACHE 05/10/2019 KOLE LR, MARIE berg Z88.1 ALLERGY STATUS TO OTHER ANTIBIOTIC AGENT 10/29/2019 ROVENSTINE DO, KAL L Ot I10 ESSENTIAL (PRIMARY) HYPERTENSION 10/29/2019 ROVENSTINE DO, KAL Ferro Ot J45.901 UNSPECIFIED ASTHMA WITH (ACUTE) EXACERBA 10/29/2019 ROVENSTINE DO, KAL Ferro Ot R06.02 SHORTNESS OF BREATH 10/29/2019 ROVENSTINE DO, KAL Ferro Ot Z87.891 PERSONAL HISTORY OF NICOTINE DEPENDENCE 10/29/2019 ROVENSTINE DO, KAL Ferro Ot Z88.1 ALLERGY STATUS TO OTHER ANTIBIOTIC AGENT 10/29/2019 YAYO LR, KILEY Martell Ot R34 ANURIA AND OLIGURIA 11/01/2019 ROVENSTINE DO, KAL L Ot I10 ESSENTIAL (PRIMARY) HYPERTENSION 11/01/2019 ROVENSTINE DO, KAL Ferro Ot J45.901 UNSPECIFIED ASTHMA WITH (ACUTE) EXACERBA 11/01/2019 ROVENSTINE DO, KAL L Ot R06.02 SHORTNESS OF BREATH 11/01/2019 ROVENSTINE DO, KAL Ferro Ot Z87.891 PERSONAL HISTORY OF NICOTINE DEPENDENCE 11/01/2019 ROVENSTINE DO, KAL L Ot Z88.1 ALLERGY STATUS TO OTHER ANTIBIOTIC AGENT 11/04/2019 ROVENSTINE DO, KAL L Ot I10 ESSENTIAL (PRIMARY) HYPERTENSION 11/04/2019 ROVENSTINE DO, KAL L Ot J45.901 UNSPECIFIED ASTHMA WITH (ACUTE) EXACERBA 11/04/2019 ROVENSTINE DO, KAL L Ot R06.02 SHORTNESS OF BREATH 11/04/2019 ROVENSTINE DO, KAL Ferro Ot Z87.891 PERSONAL HISTORY OF NICOTINE DEPENDENCE 11/04/2019 ROVENSTINE DO, KAL L Ot Z88.1 ALLERGY STATUS TO OTHER ANTIBIOTIC AGENT 11/11/2019 PATRICIA DO, CRISTIAN L Ot J45.901 UNSPECIFIED ASTHMA WITH (ACUTE) EXACERBA 11/11/2019 PATRICIA DO, CRISTIAN L Ot R06.02 SHORTNESS OF BREATH 11/11/2019 PATRICIA DO, CRISTIAN L Ot 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 11/11/2019 PATRICIA DO, CRISTIAN L Ot Z88 .1 ALLERGY STATUS TO OTHER ANTIBIOTIC AGENT 11/18/2019 PATRICIA DO, CRISTIAN L Ot J45.901 UNSPECIFIED ASTHMA WITH (ACUTE) EXACERBA 11/18/2019 PATRICIA DO, CRISTIAN L Ot R06.02 SHORTNESS OF BREATH 11/18/2019 PATRICIA DO, CRISTIAN L Ot 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 Results Test Result Range LIPID PANEL - 02/16/19 14:00 CHOLESTEROL, TOTAL 243 mg/dL <200 HDL CHOLESTEROL 44 mg/dL >40 TRIGLYCERIDES 149 mg/dL <150 LDL-CHOLESTEROL 170 mg/dL (calc) NRG CHOL/HDLC RATIO 5.5 (calc) <5.0 NON HDL CHOLESTEROL 199 mg/dL (calc) <13 0 CMP - 02/16/19 14:00 GLUCOSE 97 mg/dL 65-99 UREA NITROGEN (BUN) 14 mg/dL 7-25 CREATININE 1.03 mg/dL 0.60-1.35 eGFR NON-AFR. ERITREAN 97 mL/min/1.73m2 > OR = 60 eGFR 112 mL/min/1.73m2 > OR = 60 BUN/CREATININE RATIO NOT APPLICABLE (calc) 6-22 SODIUM 136 mmol/L 135-146 POTASSIUM 3.9 mmol/L 3.5-5.3 CHLORIDE 99 mmol/L 98-110 CARBON DIOXIDE 26 mmol/L 20-32 CALCIUM 9.6 mg/dL 8.6-10.3 PROTEIN, TOTAL 7.5 g/dL 6.1-8.1 ALBUMIN 4.7 g/dL 3.6-5.1 GLOBULIN 2.8 g/dL (calc) 1.9-3.7 ALBUMIN/GLOBULIN RATIO 1.7 (calc) 1.0-2. 5 BILIRUBIN, TOTAL 0.5 mg/dL 0.2-1.2 ALKALINE PHOSPHATASE 76 U/L 40-115 AST 24 U/L 10-40 ALT 41 U/L 9-46 CULTURE, ANAEROBIC AND AEROBIC - 9 18:47 CULTURE, ANAEROBIC BACTERIA W/GRAM STAIN SEE NOTE NRG CULTURE, AEROBIC BACTERIA SEE NOTE NRG Complete urinalysis with reflex to cultu re - 03/22/19 17:45 Urine color determination YELLOW NRG Urine clarity determination CLEAR NR G Urine pH measurement by test strip 5.5 5-9 Specific gravity of urine by test strip 1.025 1.016-1.022 Urine protein assay by test strip, semi-quantitative NEGATIVE NEGATIVE Urine glucose detection by automated test strip NE GATIVE NEGATIVE Erythrocytes detection in urine sediment by light micr oscopy NEGATIVE NEGATIVE Urine ketones detection by automated test strip NE GATIVE NEGATIVE Urine nitrite detection by test strip NEGATIVE NEGATIVE Urine total bilirubin detection by test strip NEGA TIVE NEGATIVE Urine urobilinogen measurement by automated test strip (mass/volume) 0.2 mg/dL NORMAL Urine leukocyte esterase detection by dipstick NEG ATIVE NEGATIVE Automated urine sediment erythrocyte cou nt by microscopy (number/high power field) NONE NRG Automated urine sediment leukocyte count by microscopy (number/high power field) NONE NRG Bacteria detection in urine sediment by light microsco py NONE NRG Crystals detection in urine sediment by light microsco py NONE NRG Casts detection in urine sediment by light microscopy NONE NRG Mucus detection in urine sediment by light microscopy NEGATIVE NRG Complete urinalysis with reflex to culture NO NRG Comprehensive metabolic panel - 03/22/19 17:49 Serum or plasma sodium measurement (moles/volume) 135 mmol/L 135-145 Serum or plasma potassium measurement (moles/volume) 3.8 mmol/L 3.6-5.0 Serum or plasma chloride measurement (moles/volume) 96 mmol/L 98-107 Carbon dioxide 24 mmol/L 21-32 Serum or plasma anion gap determination (moles/volume) 15 mmol/L 5-14 Serum or plasma urea nitrogen measurement (mass/volume ) 15 mg/dL 7-18 Serum or plasma creatinine measurement (mass/volume) 1.06 mg/dL 0.60-1.30 Serum or plasma urea nitrogen/creatinine mass ratio 14 NRG Serum or plasma creatinine measurement w ith calculation of estimated glomerular filtration rate > NRG Serum or plasma glucose measurement (mass/volume) 146 mg/dL 70-105 Serum or plasma calcium measurement (mass/volume) 9.1 mg/dL 8.5-10.1 Serum or plasma total bilirubin measurement (mass/volu me) 0.4 mg/dL 0.1-1.0 Serum or plasma alkaline phosphatase darwin surement (enzymatic activity/volume) 81 U/L 40-136 Serum or plasma aspartate aminotransfera se measurement (enzymatic activity/volume) 22 U/L 5-34 Serum or plasma alanine aminotransferase measurement (enzymatic activity/volume) 35 U/L 0-55 Serum or plasma protein measurement (mass/volume) 7.9 g/dL 6.4-8.2 Serum or plasma albumin measurement (mass/volume) 4.4 g/dL 3.2-4.5 CALCIUM CORRECTED 8.8 mg/dL 8.5-10.1 TSH w/ FREE T4 - 08/02/19 17:08 TSH 0.70 mIU/L 0.40-4.50 T4, FREE 0.9 ng/dL 0.8-1.8 LIPID PANEL - 08/02/19 17:08 CHOLESTEROL, TOTAL 215 mg/dL <200 HDL CHOLESTEROL 36 mg/dL >40 TRIGLYCERIDES 249 mg/dL <150 LDL-CHOLESTEROL 141 mg/dL (calc) NRG CHOL/HDLC RATIO 6.0 (calc) <5.0 NON HDL CHOLESTEROL 179 mg/dL (calc) <13 0 CMP - 08/02/19 17:08 GLUCOSE 133 mg/dL 65-99 UREA NITROGEN (BUN) 14 mg/dL 7-25 CREATININE 0.95 mg/dL 0.60-1.35 eGFR NON-AFR. ERITREAN 106 mL/min/1.73m2 > OR = 60 eGFR 123 mL/min/1.73m2 > OR = 60 BUN/CREATININE RATIO NOT APPLICABLE (calc) 6-22 SODIUM 135 mmol/L 135-146 POTASSIUM 3.7 mmol/L 3.5-5.3 CHLORIDE 100 mmol/L 98-110 CARBON DIOXIDE 23 mmol/L 20-32 CALCIUM 8.7 mg/dL 8.6-10.3 PROTEIN, TOTAL 7.0 g/dL 6.1-8.1 ALBUMIN 4.1 g/dL 3.6-5.1 GLOBULIN 2.9 g/dL (calc) 1.9-3.7 ALBUMIN/GLOBULIN RATIO 1.4 (calc) 1.0-2. 5 BILIRUBIN, TOTAL 0.4 mg/dL 0.2-1.2 ALKALINE PHOSPHATASE 71 U/L 40-115 AST 18 U/L 10-40 ALT 33 U/L 9-46 Influenza virus A and B antigen detectio n - 11/11/19 16:55 FLU RESULT NEGATIVE FOR INFLUENZA A AND B ANTIGENS BY IA NRG Encounters ACCT No. Visit Date/Time Discharge Status Pt. Type Provider Facility Loc./Unit Complaint [id number] 10/05/2019 16:15:00 10/05/2019 23:59:5 9 CLS Outpatient KILEY ZEE [facility] [id number] 08/02/2019 16:20:00 Document Registration [id number] 02/28/2019 18:00:00 Document Registration [id number] 02/16/2019 13:30:00 Document Registration [id number] 01/28/2020 15:45:00 020 23:59:59 CLS Preadmit [facility] HEMOPTYSIS [id number] 11/16/2019 11:30:00 23:59:59 CLS Outpatient COLTHDANIEL SIRI WINKLER [facility] RAD FS R06.02 R06.2 [id number] 11/11/2019 16:21:00 19:06:00 DIS Emergency PATRICIA CRISTIAN WINKLER [facility] ER FS SOA [id number] 10/29/2019 12:48:00 13:42:00 DIS Emergency ROVENSTINE KAL WINKLER [facility] ER FS SOB [id number] 04/16/2019 06:57:00 07:45:00 DIS Emergency KOLE LR, POOL Seth [facility] ER FS HEADACHE [id number] 03/22/2019 17:38:00 23:59:59 CLS Outpatient YAYO LR, KILEY Martell [facility] LAB FS FLANK PAIN; DECREASED U RINE OUTPUT [id number] 02/12/2020 10:25:[address] Emergency KAL BARFIELD DO [facility] ER FS NAUSEA; FEELS LIKE HE IS GOI NG TO PASS OUT
[2020-02-12 11:22] LABS: BASOPHILS % (AUTO) 0 % (0-10); EOSINOPHILS % (AUTO) 1 % (0-10); HEMATOCRIT 45 % (40-54); HEMOGLOBIN 15.4 G/DL (13.3-17.7); LYMPHOCYTES % (AUTO) 21 % (12-44); MEAN CORPUSCULAR HEMOGLOBIN 29 PG (25-34); MEAN CORPUSCULAR HGB CONC 34 G/DL (32-36); MEAN CORPUSCULAR VOLUME 86 FL (80-99); MEAN PLATELET VOLUME 9.5 FL (7.4-10.4); MONOCYTES % (AUTO) 6 % (0-12); PLATELET COUNT 296 10^3/uL (130-400); RED CELL DISTRIBUTION WIDTH 14.5 % (10.0-14.5); WHITE BLOOD COUNT 8.8 10^3/uL (4.3-11.0)
[2020-02-12 11:23] LABS: EOSINOPHILS # (AUTO) 0.1 10^3/uL (0.0-0.3); LYMPHOCYTES # (AUTO) 1.9 X 10^3 (1.0-4.0); MONOCYTES # (AUTO) 0.6 X 10^3 (0.0-1.0); NEUTROPHILS # (AUTO) 6.3 X 10^3 (1.8-7.8); NEUTROPHILS % (AUTO) 72 % (42-75)
[2020-02-12 11:42] LABS: ALANINE AMINOTRANSFERASE 39 U/L (0-55); ALKALINE PHOSPHATASE 66 U/L (40-136); BILIRUBIN,TOTAL 0.8 MG/DL (0.1-1.0); BUN/CREATININE RATIO 14; CALCIUM 9.6 MG/DL (8.5-10.1); CARBON DIOXIDE 26 MMOL/L (21-32); CHLORIDE 97 MMOL/L (98-107); CREATININE SERUM 0.97 MG/DL (0.60-1.30); GFR ESTIMATED > 60; GLUCOSE 112 MG/DL (70-105); POTASSIUM 3.6 MMOL/L (3.6-5.0); SODIUM 137 MMOL/L (135-145)
[2020-02-12 11:43] LABS: ALBUMIN 4.6 GM/DL (3.2-4.5); TOTAL PROTEIN 7.8 GM/DL (6.4-8.2)
[2020-02-12] MEDS ORDERED: ACETAMINOPHEN 500 MG TAB (TYLENOL) PO ONE (12:00)
--- NOTE | 2020-02-12 12:48 | NUR ---
REPORT TAKEN FROM REBECA MEZA AT THIS TIME. THIS RN WILL ASSUME CARE WHEN HE ARRIVES VIA EMS FROM [facility].
[2020-02-12 13:40] VITALS: BP 117/70
[2020-02-12 14:09] VITALS: BP 136/65
[2020-02-12] MEDS ORDERED: LISI1TAB26 PO (14:21)
[2020-02-12] MEDS ORDERED: FAMO20TA5 PO (14:21)
--- NOTE | 2020-02-12 14:21 | NUR ---
SPOKE WITH THE PT AND WENT THRU THE EXT MED HISTORY TO COMPLETE THE MED REC FAMOTIDINE 20MG- DIRECTIONS FROM [facility] SHOW 1 TAB BID, HOWEVER THE PT IS JUST TAKING 1 TAB DAILY OTC MEDS: NONE
--- OUTSIDE RECORDS SUMMARY | 2020-02-12 14:30 | XMS REPORT | Continuity of Care Document ---
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 [place] 97 mL/min/1.73m2 > OR = 60 eGFR [...] 7-25 CREATININE 0.95 mg/dL 0.60-1.35 eGFR NON-AFR. [place] 106 mL/min/1.73m2 > OR = 60 eGFR [...] Status Pt. Type Provider Facility Loc./Unit Complaint [id number] 10/05/2019 16:15:00 10/05/2019 23:59:5 9 CLS Outpatient [facility] [id number] 08/02/2019 16:20:00 Document Registration [id number] 02/28/2019 18:00:00 Document Registration [id number] 02/16/2019 13:30:00 Document Registration [id number] 01/28/2020 15:45:00 020 23:59:59 CLS Preadmit [facility] HEMOPTYSIS [id number] 11/16/2019 11:30:00 23:59:59 CLS Outpatient COLTHARP SIRI WINKLER [facility] RAD FS R06.02 R06.2 [id number] 11/11/2019 16:21:00 19:06:00 DIS Emergency PATRICIA DO CRISTIAN L [facility] ER FS SOA [id number] 10/29/2019 12:48:00 13:42:00 DIS Emergency ROVENSTINE KAL WINKLER L [facility] ER FS SOB [id number] 04/16/2019 06:57:00 07:45:00 DIS Emergency KOLE LR, POOL Seth [facility] ER FS HEADACHE [id number] 03/22/2019 17:38:00 23:59:59 CLS Outpatient YAYO LR, KILEY Martell [facility] LAB FS FLANK PAIN; DECREASED U RINE OUTPUT [id number] 02/12/2020 12:40:[address] Inpatient AC LR, LUI Martell [facility] 4TH CHEST PAIN
[2020-02-12] MEDS ORDERED: NITROGLYCERIN 0.4 MG SL TABS BTL 25'S SL PRN (15:00)
[2020-02-12] MEDS ORDERED: CATHETER FLUSH 10 ML SYR IV PRN (15:00)
[2020-02-12 15:43] VITALS: BP 108/57
--- NOTE | 2020-02-12 15:46 | Short Stay Summary-Hospitalist ---
History of Present Illness HPI/Chief Complaint Pt is a 29yoCM with a PMH of HTN who presented to the Er with a CC of chest pain. He states he was at rest when it started and went across his chest to his shoulders. He was ill yesterday and vomiting and associated it with that. He thought he had not taken his BP medicine so he went home and took it. Despite this his symptoms continued. He was dizzy with it. He was also nauseated and SOB. he thinks he may have been diaphoretic as well but thought it was due to anxiety. He ultimately decided to seek evaluation in the ER. He was give nitro x2 and that resolved his symptoms. We was transferred here for cardiology e valuation. He reports in the ambulance he started to feel much better and now has no pain. He is requesting discharge home. Date Seen 02/12/20 Time Seen by a Provider: 15:53 Attending Physician Lui Shen MD PCP Mandy Perea MD Referring Physician Date of Admission February 12, 2020 at 12:40 Home Medications & Allergies Home Medications Reviewed patient Home Medication Reconciliation performed by pharmacy medication reconciliations logistics technician and/or nursing. Patients Allergies have been reviewed. Allergies Allergies Coded Allergies cefdinir (Verified Allergy, Unknown, 02/12/20) Past Hbehhbb-Onrkys-Wzrapb Hx Past Med/Social Hx: Reviewed Nursing Past Med/Soc Hx Patient Social History Marrital Status: Employed/Student: employed Alcohol Use: Denies Use Recreational Drug Use: No Smoking Status: Former Smoker Former Smoker, Quit: Jun 26, 2019 Type Used: Cigarettes 2nd Hand Smoke Exposure: No Recent Foreign Travel: No Contact w/other who traveled: No Recent Hopitalizations: No Recent Infectious Disease Expo: No Seasonal Allergies Seasonal Allergies: No Past Medical History Surgeries: Gallbladder Cardiac: Hypertension History of Blood Disorders: No Family History Ventricular tachycardia 19 MOTHER Heart Disease, Cancer, CAD Under 55 Years Old, CAD Over 55 Years Old Adopted: Paternal history unknown Maternal History: Biological mother with v-tach and pacemaker placement in 30s Biological Uncle x2 with CAD and [place] with CABG in 50s Biological grandparents with CAD and HF Review of Systems Constitutional: No chills; diaphoresis; No fever Respiratory: see HPI, short of breath Cardiovascular: see HPI Gastrointestinal: nausea, vomiting Genitourinary: no symptoms reported Musculoskeletal: no symptoms reported Skin: no symptoms reported Psychiatric/Neurological: Anxiety Physical Exam Physical Exam Vital Signs Vital Signs - First Documented 02/12/20 10:28 Temp 37.3 Pulse 88 Resp 18 B/P (MAP) 148/73 (98) Pulse Ox 95 O2 Delivery Room Air Capillary Refill : Less Than 3 Seconds Height, Weight, BMI Height: 5'11.00" Weight: 3lbs. 11.0oz. 1.527672pw; 45.71 BMI Method:Stated General Appearance: No Apparent Distress, WD/WN, Obese HEENT: PERRL/EOMI, Normal ENT Inspection, Moist Mucous Membranes Neck: Normal Inspection, Supple; No JVD Respiratory: Chest Non Tender, Lungs Clear, No Accessory Muscle Use, No Respiratory Distress Cardiovascular: Regular Rate, Rhythm, No Edema, No JVD, No Murmur, Normal Peripheral Pulses Gastrointestinal: Normal Bowel Sounds, Non Tender, Soft; No Distended, No Guarding, No Rebound Extremity: Normal Capillary Refill, Normal Inspection; No No Pedal Edema Neurologic/Psychiatric: Alert, Oriented x3, Normal Mood/Affect; No Aphasia, No Facial Droop Skin: Normal Color, Warm/Dry, Tattoos/Piercings Results Results/Procedures Labs Laboratory Tests 02/12/20 10:39 Patient resulted labs reviewed. Imaging: Reviewed Imaging Report Imaging Date of Exam:02/12/20 CHEST 1 VIEW AP/PA ONLY INDICATION: Chest tightness and presyncope. TECHNIQUE/COMPARISON: A frontal chest was obtained at 10:48 AM and compared to 11/16/2019. FINDINGS: The heart and mediastinal silhouette are normal in appearance. The lungs appear essentially clear. The bilateral infiltrates seen on 11/16/2019 appear resolved. There is no pneumothorax or pleural fluid. IMPRESSION: Negative chest with resolution of the infiltrates seen on 11/16/2019. Short Stay Diagnosis Discharge Diagnosis-Short Stay Admission Diagnosis Chest pain Final Discharge Diagnosis Chest Pain Conclusion Plan Chest Pain Negative troponin x1 Given symptoms and risk factors including personal history of HTN and tobacco abuse and family history with premature CAD observation recommended Patient cordially states he would like to leave this evening and will sign out AMA as long as second troponin is negative but will stay if it rises Discussed with Dr Puckett who will facilitate early outpatient follow up on to schedule stress test Discussed risks of and debility with patient who understands and still wishes to leave Clinical Quality Measures AMI/AHF: ASA po Prior to arrival: No DVT/VTE Risk/Contraindication: Risk Factor Score Per Nursin RFS Level Per Nursing on Admit: 2=Moderate LUI SHEN MD February 12, 2020 15:46
[2020-02-12] MEDS ORDERED: ASPI-808 PO (16:00)
[2020-02-12 17:20] VITALS: BP 108/57
[2020-02-12] MEDS ORDERED: CATHETER FLUSH 10 ML SYR IV SCH (22:00)
[2020-02-13] MEDS ORDERED: ASPIRIN 325 MG (5 GR) TABLET PO SCH (09:00)
== END 2020-02-12 17:15 | disposition home or self-care (01) ==
LOC: EDUNIT# 10:23 → ER FS 10:25 → 4TH 12:40
PROVIDERS: ADMIT Family Medicine; ATTEND Family Medicine
DX: R07.9 Chest pain, unspecified (principal); I10 Essential (primary) hypertension; Z88.1 Allergy status to other antibiotic agents; Z79.899 Other long term (current) drug therapy; Z87.891 Personal history of nicotine dependence
CPT/HCPCS: 36415; 71045; 80053; 84484; 85025; 93005; G0378

== ENCOUNTER → 2020-02-23 | Outpatient (CLI) | payer BC ==
[~2020-02-23] MED LIST changes: +ASPI-808 PO; +FAMO20TA5 PO; +LISI1TAB26 PO
== END ==
LOC: LAB FS 18:07
PROVIDERS: ATTEND Family Medicine
DX: Z01.812 Encounter for preprocedural laboratory examination (principal); Z11.59 Encounter for screening for other viral diseases
CPT/HCPCS: 87635

== ENCOUNTER → 2020-03-19 | Outpatient (CLI) | payer BC ==
[2020-03-19 10:34] LABS: HEMATOCRIT 43 % (40-54); HEMOGLOBIN 14.4 G/DL (13.3-17.7); MEAN CORPUSCULAR HEMOGLOBIN 30 PG (25-34); MEAN CORPUSCULAR HGB CONC 33 G/DL (32-36); MEAN CORPUSCULAR VOLUME 89 FL (80-99); PLATELET COUNT 285 10^3/uL (130-400); RED CELL DISTRIBUTION WIDTH 15.4 % (10.0-14.5); WHITE BLOOD COUNT 8.3 10^3/uL (4.3-11.0)
[2020-03-19 10:35] LABS: BASOPHILS % (AUTO) 0 % (0-10); EOSINOPHILS # (AUTO) 0.1 10^3/uL (0.0-0.3); EOSINOPHILS % (AUTO) 1 % (0-10); LYMPHOCYTES # (AUTO) 1.8 X 10^3 (1.0-4.0); LYMPHOCYTES % (AUTO) 22 % (12-44); MEAN PLATELET VOLUME 9.3 FL (7.4-10.4); MONOCYTES # (AUTO) 0.7 X 10^3 (0.0-1.0); MONOCYTES % (AUTO) 8 % (0-12); NEUTROPHILS # (AUTO) 5.6 X 10^3 (1.8-7.8); NEUTROPHILS % (AUTO) 67 % (42-75)
[2020-03-19 11:18] LABS: ALANINE AMINOTRANSFERASE 61 U/L (0-55); ALKALINE PHOSPHATASE 84 U/L (40-136); BILIRUBIN,TOTAL 0.5 MG/DL (0.1-1.0); BUN/CREATININE RATIO 11; CALCIUM 9.4 MG/DL (8.5-10.1); CARBON DIOXIDE 23 MMOL/L (21-32); CHLORIDE 104 MMOL/L (98-107); CREATININE SERUM 0.88 MG/DL (0.60-1.30); GFR ESTIMATED > 60; GLUCOSE 103 MG/DL (70-105); POTASSIUM 4.1 MMOL/L (3.6-5.0); SODIUM 138 MMOL/L (135-145)
[2020-03-19 11:19] LABS: ALBUMIN 4.2 GM/DL (3.2-4.5); TOTAL PROTEIN 7.2 GM/DL (6.4-8.2)
[2020-03-19 15:12] LABS: CHOLESTEROL 179 MG/DL (< 200); HDL CHOLESTEROL 29 MG/DL (40-60); TRIGLYCERIDES 157 MG/DL (<150); VLDL CHOLESTEROL 31 MG/DL (5-40)
== END ==
LOC: LAB FS 09:33
PROVIDERS: ATTEND Family Medicine
DX: Z00.00 Encounter for general adult medical examination without abnormal findings (principal); K92.1 Melena
CPT/HCPCS: 36415; 80053; 80061; 84402; 84403; 85025; 86769

== ENCOUNTER → 2020-04-15 | Outpatient (CLI) | payer BC ==
--- NOTE | 2020-04-15 16:08 | Diagnostic Imaging Report ---
INDICATION: Hemoptysis and hypertension. TECHNIQUE/COMPARISON: PA and lateral films of the chest were obtained at 3:52 PM and compared to 02/12/2020. FINDINGS: The heart and mediastinal silhouette are normal in appearance. The lungs show no definite focal infiltrate, pneumothorax, or pleural fluid. There is no overt bony abnormality in the chest. IMPRESSION: No acute process in the chest. Dictated by: Dictated on workstation # [id number]
--- NOTE | 2020-04-15 18:42 | Diagnostic Imaging Report ---
Indication: Knee pain. Time of Exam 3:54 PM Multiple views bilateral knees were obtained. Mild patellofemoral degenerative change right knee is noted. Medial and lateral compartments are well maintained. Articular surfaces are smooth. There is no effusion. No fracture or dislocation is seen. Left knee also shows medial and lateral compartments to be maintained. Articular surfaces are smooth. Patellofemoral joints unremarkable. No fracture, dislocation or effusion is seen. IMPRESSION: Mild patellofemoral degenerative change on the right. No acute bony abnormality is detected. Dictated by: Dictated on workstation # [id number]
== END ==
LOC: RAD FS 15:20
PROVIDERS: ATTEND Family Medicine
DX: I10 Essential (primary) hypertension (principal); R04.2 Hemoptysis; M25.562 Pain in left knee; M17.11 Unilateral primary osteoarthritis, right knee
CPT/HCPCS: 71046

== ENCOUNTER 2021-06-25 22:36 | Emergency (ER) | payer BC ==
[~2021-06-25] VITALS: Ht 180 cm; Wt 135.7 kg
--- NOTE | 2021-06-25 22:50 | ED EENT ---
History of Present Illness General Chief Complaint: Dental Problems/Pain Stated Complaint: TOOTH PAIN Source: patient Exam Limitations: no limitations History of Present Illness Date Seen by Provider: Jun 25, 2021 Time Seen by Provider: 22:47 Initial Comments 31-year-old male coming in due to left lower jaw pain due to what he knows to be a tooth infection. He saw his dentist, but says he needs to see a specialist to have a root canal and has been unable to do that as of yet. Finished a round of clindamycin several days ago and the pain is significantly worse now. Has not had any fever, difficulty opening his mouth, difficulty swallowing, neck pain, or any other concerns. Allergies and Home Medications Allergies Coded Allergies: cefdinir (Verified Allergy, Unknown, 02/12/20) Patient Home Medication List Home Medication List Reviewed: Yes Aspirin (Aspirin) 325 Mg Tablet, 325 MG PO DAILY@0900 Prescribed by: LUI SHEN on 02/12/20 1600 Clindamycin HCl (Clindamycin HCl) 300 Mg Capsule, 300 MG PO QID Prescribed by: RAFITA MATTHEWS on 06/25/21 2258 Famotidine (Famotidine) 20 Mg Tablet, 20 MG PO DAILY, (Reported) Entered as Reported by: JONATAN WHATLEY on 02/12/20 1421 Lisinopril/Hydrochlorothiazide (Lisinopril-Hctz 20-25 mg Tab) 1 Each Tablet, 1 EA PO DAILY, (Reported) Entered as Reported by: JONATAN WHATLEY on 02/12/20 1421 Review of Systems Review of Systems Constitutional: No chills, No fever Eyes: No Symptoms Reported Ears: No Symptoms Reported Nose: no symptoms reported Mouth: pain Throat: no symptoms reported; denies pain, denies swelling, denies neck stiffness, denies hoarse, denies muffled, denies painful swallowing Respiratory: No short of breath Cardiovascular: No chest pain Gastrointestinal: No abdominal pain Musculoskeletal: No gout Skin: no symptoms reported Neurological: No Symptoms Reported Hematologic/Lymphatic: No Symptoms Reported Immunological/Allergic: no symptoms reported Past Vjpafhf-Jiwomk-Nbriua Hx Patient Social History Tobacco Use?: Yes Alcohol Use?: Yes Seasonal Allergies Seasonal Allergies: No Past Medical History Surgeries: Yes ([place] teeth removal) Gallbladder Respiratory: No Cardiac: Yes Hypertension Neurological: No Genitourinary: No Gastrointestinal: No Musculoskeletal: No Endocrine: No HEENT: No Cancer: No Psychosocial: No Integumentary: No Blood Disorders: No Family Medical History Ventricular tachycardia 19 MOTHER Heart Disease, Cancer, CAD Under 55 Years Old, CAD Over 55 Years Old Adopted: Paternal history unknown Maternal History: Biological mother with v-tach and pacemaker placement in 30s Biological Uncle x2 with CAD and [place] with CABG in 50s Biological grandparents with CAD and HF Physical Exam Vital Signs Vital Signs - First Documented 06/25/21 22:40 Temp 36.7 Pulse 112 Resp 18 B/P (MAP) 160/95 (116) Pulse Ox 96 O2 Delivery Room Air Height, Weight, BMI Height: 5'11.00" Weight: 3lbs. 11.0oz. 1.680590ho; 45.71 BMI Method:Stated General Appearance: WD/WN, no apparent distress Eyes: bilateral eye normal inspection, bilateral eye PERRL Ears: bilateral ear auricle normal, bilateral ear canal normal, bilateral ear TM normal Nose: normal inspection Mouth/Throat: dental tenderness; No excessive drooling, No mandibular swelling, No pharynx swelling, No tongue swollen, No tonsillar exudate, No trismus, No uvula swelling, No voice changes Neck: non-tender, full range of motion, supple, normal inspection Cardiovascular: regular rate, rhythm, no edema, no murmur Respiratory: chest non-tender, lungs clear, normal breath sounds, no respirator y distress, no accessory muscle use Gastrointestinal: normal bowel sounds, non tender, soft; No distended, No guarding, No rebound Neurologic/Psychiatric: no motor/sensory deficits, alert, normal mood/affect Skin: normal color, warm/dry Progress/Results/Core Measures Results/Orders My Orders Orders - RAFITA MATTHEWS MD Hydrocodone/Apap 5/325 Tablet (Lortab 5 (06/25/21 23:00) Clindamycin Capsule (Cleocin Capsule) (06/25/21 23:00) Rx-Hydrocodone/Apap 5-325 Mg (Rx-Vicodin (06/25/21 23:00) Medications Given in ED Current Medications Medications Dose Ordered Sig/Marla Route Start Time Stop Time Status Last Admin Dose Admin Acetaminophen/ Hydrocodone Bitart 1 ea ONCE ONCE PO 06/25/21 23:00 06/25/21 23:01 DC 06/25/21 23:01 1 EA Clindamycin HCl 300 mg ONCE ONCE PO 06/25/21 23:00 06/25/21 23:01 DC 06/25/21 23:01 300 MG Vital Signs/I&O 06/25/21 06/25/21 22:40 23:10 Temp 36.7 36.7 Pulse 112 112 Resp 18 18 B/P (MAP) 160/95 (116) 160/95 Pulse Ox 96 96 O2 Delivery Room Air Room Air Progress Progress Note : Progress Note 31-year-old male with above history coming in due to dental pain. ABCs were intact and vitals were stable on presentation. He does not have any large abscess or facial swelling. No trismus, no signs of [place]'s angina, voice is normal, and overall he is well-appearing. Given first dose of clindamycin here followed by her prescription. Checked [facility] with no opioids prescribed in more than 5 years. Gave a couple doses of hydrocodone to get him through while the antibiotic is working. He was then discharged home in stable condition with strict return precautions. Departure Impression Primary Impression: Dental abscess Disposition: HOME, SELF-CARE Condition: Stable Departure-Patient Inst. Decision time for Depature: 22:55 Referrals: KILEY ZEE MD (PCP/Family) Primary Care Physician Patient Instructions: Tooth Abscess (DC) Add. Discharge Instructions: You were seen in the emergency department for an infection in your tooth. Take this antibiotic for the next week. Be sure to eat plenty of yogurt and good bacteria. Take 600 mg of ibuprofen every 6 hours for pain as well as 1000 mg of Tylenol every 6 hours. This is essentially only a Band-Aid, and that problem will continue to get worse until you have the tooth fixed. All discharge instructions reviewed with patient and/or family. Voiced understanding. Scripts Clindamycin HCl (Clindamycin HCl) 300 Mg Capsule 300 MG PO QID for 7 Days, #28 CAP Prov: RAFITA MATTHEWS MD 06/25/21 RAFITA MATTHEWS MD Jun 25, 2021 22:50
[2021-06-25] MEDS ORDERED: CLIN300C12 PO (22:58)
[2021-06-25] MEDS ORDERED: CLINDAMYCIN 150 MG (CLEOCIN) CAP PO ONE (23:00)
[2021-06-25] MEDS ORDERED: HYDROcodone/APAP 5 MG/325 MG (LORTAB) TAB PO ONE (23:00)
[2021-06-25 23:10] VITALS: BP 160/95
== END 2021-06-25 23:10 | disposition home or self-care (01) ==
LOC: EDUNIT# 22:36 → ER FS 22:37
DX: K04.7 Periapical abscess without sinus (principal); I10 Essential (primary) hypertension; Z88.1 Allergy status to other antibiotic agents; Z79.899 Other long term (current) drug therapy
CPT/HCPCS: 99283

== ENCOUNTER → 2021-07-07 | Outpatient (CLI) | payer BC ==
[~2021-07-07] MED LIST changes: +CLIN300C12 PO
[2021-07-07 12:25] LABS: CREATININE SERUM 0.96 MG/DL (0.60-1.30); POTASSIUM 4.4 MMOL/L (3.6-5.0)
[2021-07-07 12:26] LABS: ALBUMIN 3.9 GM/DL (3.2-4.5); BILIRUBIN,TOTAL 0.3 MG/DL (0.1-1.0); CALCIUM 8.8 MG/DL (8.5-10.1); TOTAL PROTEIN 7.1 GM/DL (6.4-8.2)
== END ==
LOC: LAB FS 10:03
PROVIDERS: ATTEND Registered Nurse Emergency
DX: I10 Essential (primary) hypertension (principal)
CPT/HCPCS: 36415; 80053; 80061

== ENCOUNTER 2022-03-09 06:51 | Emergency (ER) | payer BC, OTHER ==
[~2022-03-09] VITALS: Ht 180 cm; Wt 146.1 kg
[~2022-03-09 06:51] MED LIST changes: +CLIN-144 PO; -CLIN300C12 PO; -LISI1TAB26 PO; +LISI1TAB48 PO
[2022-03-09] MEDS ORDERED: KETOROLAC 30 MG/ML VIAL IVP STA (07:47)
[2022-03-09] MEDS ORDERED: PANTOPRAZOLE 40 MG (PROTONIX) VIAL IV STA (07:47)
[2022-03-09] MEDS ORDERED: ONDANSETRON 4 MG/2 ML (SDV) Z0FRAN IVP STA (07:47)
[2022-03-09] MEDS ORDERED: NS IV 1000 ML 1,000 ML IV STA (07:47)
[2022-03-09 08:10] LABS: BASOPHILS % (AUTO) 0 % (0-10); EOSINOPHILS # (AUTO) 0.2 10^3/uL (0.0-0.3); EOSINOPHILS % (AUTO) 2 % (0-10); HEMATOCRIT 45 % (40-54); HEMOGLOBIN 15.5 g/dL (13.3-17.7); LYMPHOCYTES # (AUTO) 2.3 10^3/uL (1.0-4.0); LYMPHOCYTES % (AUTO) 22 % (12-44); MEAN CORPUSCULAR HEMOGLOBIN 31 pg (25-34); MEAN CORPUSCULAR HGB CONC 34 g/dL (32-36); MEAN CORPUSCULAR VOLUME 89 fL (80-99); MEAN PLATELET VOLUME 9.5 fL (9.0-12.2); MONOCYTES # (AUTO) 0.8 10^3/uL (0.0-1.0); MONOCYTES % (AUTO) 8 % (0-12); NEUTROPHILS # (AUTO) 6.9 10^3/uL (1.8-7.8); NEUTROPHILS % (AUTO) 67 % (42-75); PLATELET COUNT 273 10^3/uL (130-400); WHITE BLOOD COUNT 10.4 10^3/uL (4.3-11.0)
[2022-03-09] MEDS ORDERED: IOHEXOL 350 MG/ML 100 ML (OMNIPAQUE 350) VIAL IV ONE (08:15)
[2022-03-09] MEDS ORDERED: CATHETER FLUSH 10 ML SYR IV PRN (08:15)
[2022-03-09] MEDS ORDERED: NS 100 ML (IVPB) BAG IV ONE (08:15)
[2022-03-09] MEDS ORDERED: HOLD METFORMIN - RECEIVED CONTRAST 20 ML VIAL IV SCH (08:15)
[2022-03-09 08:27] LABS: BILIRUBIN,URINE NEGATIVE (NEGATIVE); CLARITY,URINE CLEAR; COLOR,URINE YELLOW; GLUCOSE, URINE (UA) NEGATIVE (NEGATIVE); KETONES,URINE NEGATIVE (NEGATIVE); LEUKOCYTE ESTERASE ,URINE NEGATIVE (NEGATIVE); NITRITE,URINE NEGATIVE (NEGATIVE); PROTEIN,URINE TRACE (NEGATIVE)
--- NOTE | 2022-03-09 08:31 | Diagnostic Imaging Report ---
EXAMINATION: CT abdomen and pelvis with intravenous contrast. TECHNIQUE: Multiple contiguous axial images were obtained through the abdomen and pelvis after the uneventful administration of intravenous contrast. All CT scans use one or more of the following dose optimizing techniques: automated exposure control, MA and/or KvP adjustment based on patient size and exam type or iterative reconstruction. HISTORY: Right-sided abdominal pain. Nausea and vomiting. COMPARISON: None available. FINDINGS: The heart is unremarkable. The included lung bases are clear. The liver, spleen, pancreas, adrenal glands, and kidneys have a normal appearance. The gallbladder is surgically absent. There is no pathologically enlarged mesenteric or retroperitoneal adenopathy. The bowel loops are nondilated. The appendix is visualized in the right lower quadrant and has a normal appearance. There is no free fluid or free air. No acute osseous abnormalities. There is grade 1 anterolisthesis of L5 on S1 with bilateral pars defects at L5. Ureters and bladder are grossly normal. There is no free air, loculated collection, or adenopathy in the pelvis. IMPRESSION: 1. No acute abnormalities in the abdomen and pelvis. No bowel obstruction, free fluid, or free air. Normal appendix. Dictated by: Dictated on workstation # [id number]
--- NOTE | 2022-03-09 08:35 | ED GI ---
General Chief Complaint: Abdominal/GI Problems Stated Complaint: VOMITING/DIARRHEA Nursing Triage Note: PT AMBULATE TO ROOM FS06 WITH C/O DIARRHEA X1 WEEKS AND N/V STARTING LAST NIGHT. PT REPORTS BEING SEEN AT [facility] FOR SAME C/O AND THAT THEY SHIRLEY BLOOD AND COLLECTED A STOOL SAMPLE. PT STATES THAT HE WAS TOLD TO COME TO ED IF SYMPTOMS WORSENED. Source of Information: Patient History of Present Illness Date Seen by Provider: Mar 09, 2022 Time Seen by Provider: 07:00 Initial Comments 32-year-old male presenting with complaints of 1 week of diarrhea and loose stools. He states that the stools are usually watery and yellow in color and occasionally he will have juan josé colored stool mixed in. He reports that the di arrhea smells like "pus". He has had previous gallbladder surgery. He reports some burning sensation in his right upper abdomen. With palpation he has pain on the entire right side of his abdomen. He denies having any blood in his stool. He did go to urgent care yesterday and they collected blood and stool sample. They told him if he started to vomit he should go to the ER and he started to throw up this morning. He states he threw up 3-4 times between 5 and 6 AM. He has kept some water down since 6 AM. He has had chills but no fever. He denies any pain or burning with urination. There has been no blood in his urine. He does report having amoxicillin recently for dental infection prior to having the diarrhea and abdominal pain start. Timing/Duration: 1 Week Severity/Quality: Moderate, Burning Location: RUQ Radiation: No Radiation Activities at Onset: None Modifying Factors: Worsens With Eating, Worsens With Movement, Worsens With Palpation Associated Symptoms: No Back Pain, No Chest Pain, No Diaphoresis; Fever/Chills (Chills without fever), Fatigue; No Headache; Heartburn, Nausea/Vomiting; No Rash, No Shortness of Air, No Swelling/Mass in Abdomen, No Syncope, No Weakness Allergies and Home Medications Allergies Coded Allergies: cefdinir (Verified Allergy, Unknown, 02/12/20) Patient Home Medication List Home Medication List Reviewed: Yes Aspirin (Aspirin) 325 Mg Tablet, 325 MG PO DAILY@0900 Prescribed by: LUI SHEN on 02/12/20 1600 Clindamycin HCl (Clindamycin HCl) 300 Mg Capsule, 300 MG PO QID Prescribed by: ARFITA MATTHEWS on 06/25/21 7752 Dicyclomine HCl (Dicyclomine HCl) 20 Mg Tablet, 20 MG PO QID PRN for abdominal pain Prescribed by: ALEKSANDRA QUIROZ on 03/09/22 100 Famotidine (Famotidine) 20 Mg Tablet, 20 MG PO DAILY, (Reported) Entered as Reported by: JONATAN WHATLEY on 02/12/20 1421 Lisinopril/Hydrochlorothiazide (Lisinopril-Hctz 20-25 mg Tab) 1 Each Tablet, 1 EA PO DAILY, (Reported) Entered as Reported by: JONATAN WHATLEY on 02/12/20 1421 Ondansetron (Ondansetron Odt) 4 Mg Tab.rapdis, 4 MG PO Q6H PRN for NAUSEA/VOMITING Prescribed by: ALEKSANDRA QUIROZ on 03/09/22 1004 Pantoprazole Sodium (Pantoprazole Sodium) 40 Mg Tablet.dr, 40 MG PO DAILY Prescribed by: ALEKSANDRA QUIROZ on 03/09/22 1004 Review of Systems Review of Systems Constitutional: chills; No fever EENTM: No Symptoms Reported Respiratory: No Symptoms Reported Cardiovascular: No Symptoms Reported Gastrointestinal: See HPI Genitourinary: Denies Burning, Denies Frequency, Denies Flank Pain, Denies Pain Musculoskeletal: no symptoms reported Skin: No rash Psychiatric/Neurological: Denies Headache Endocrine: No Symptoms Reported Hematologic/Lymphatic: No Symptoms Reported Past Sutzmij-Frdkpg-Talkkf Hx Patient Social History Tobacco Use?: No Smoking Status: Never a Smoker Smokeless Tobacco Frequency: Never a User Use of E-Cig and/or Vaping dev: No Use of E-Cig and/or Vaping Alexys: Never a User Substance use?: No Alcohol Use?: Yes Alcohol Frequency: Once in a while Pt feels they are or have been: No Immunizations Up To Date First/Initial COVID19 Vaccinat: NA Seasonal Allergies Seasonal Allergies: No Past Medical History Surgery/Hospitalization HX: Cholecystectomy Surgeries: Yes ([place] teeth removal) Gallbladder Respiratory: No Cardiac: Yes Hypertension Neurological: No Genitourinary: No Gastrointestinal: No Musculoskeletal: No Endocrine: No HEENT: No Cancer: No Psychosocial: No Integumentary: No Blood Disorders: No Family Medical History Ventricular tachycardia 19 MOTHER Heart Disease, Cancer, CAD Under 55 Years Old, CAD Over 55 Years Old Adopted: Paternal history unknown Maternal History: Biological mother with v-tach and pacemaker placement in 30s Biological Uncle x2 with CAD and [place] with CABG in 50s Biological grandparents with CAD and HF Physical Exam Vital Signs Vital Signs - First Documented 03/09/22 07:02 Temp 36.3 Pulse 96 Resp 17 B/P (MAP) 152/80 (104) O2 Delivery Room Air Capillary Refill : Less Than 3 Seconds Height/Weight/BMI Height: 5'11.00" Weight: 3lbs. 11.0oz. 1.133479ai; 45.00 BMI Method:Stated General Appearance: WD/WN, no apparent distress, obese HEENT: PERRL/EOMI, TMs normal, pharynx normal Neck: non-tender, full range of motion, supple, normal inspection Respiratory: chest non-tender, lungs clear, normal breath sounds, no respira tory distress, no accessory muscle use Cardiovascular: normal peripheral pulses, regular rate, rhythm Gastrointestinal: normal bowel sounds, soft, no pulsatile mass; No distended; guarding (With palpation along the right side of his abdomen); No rebound; tenderness (Sharp pain with palpation along the right half of his abdomen); No mass Rectal: deferred Extremities: normal range of motion, non-tender, normal inspection, no pedal edema, no calf tenderness, normal capillary refill Back: no CVA tenderness Neurologic/Psychiatric: glove former II-XII nml as tested, alert, oriented x 3 Skin: normal color, warm/dry Focused Exam Lactate Level 03/09/22 08:13: Lactic Acid Level 0.91 Lactic Acid Level Laboratory Tests Test 03/09/22 08:13 Lactic Acid Level 0.91 MMOL/L (0.50-2.00) Progress/Results/Core Measures Results/Orders Lab Results Laboratory Tests Test 03/09/22 07:03 03/09/22 07:13 03/09/22 08:13 Range/Units Urine Color YELLOW Urine Clarity CLEAR Urine pH 6.0 5-9 Urine Specific [place] 1.025 H 1.016-1.022 Urine Protein TRACE H NEGATIVE Urine Glucose (UA) NEGATIVE NEGATIVE Urine Ketones NEGATIVE NEGATIVE Urine Nitrite NEGATIVE NEGATIVE Urine Bilirubin NEGATIVE NEGATIVE Urine Urobilinogen 1.0 < = 1.0 MG/DL Urine Leukocyte Esterase NEGATIVE NEGATIVE Urine RBC (Auto) NEGATIVE NEGATIVE Urine RBC NONE /HPF Urine WBC 2-5 /HPF Urine Squamous Epithelial Cells RARE /HPF Urine Crystals PRESENT H /LPF Urine Calcium Oxalate Crystals FEW H /LPF Urine Bacteria NEGATIVE /HPF Urine Casts NONE /LPF Urine Mucus LARGE H /LPF Urine Culture Indicated NO White Blood Count 10.4 4.3-11.0 10^3/uL Red Blood Count 5.09 4.30-5.52 10^6/uL Hemoglobin 15.5 13.3-17.7 g/dL Hematocrit 45 40-54 % Mean Corpuscular Volume 89 80-99 fL Mean Corpuscular Hemoglobin 31 25-34 pg Mean Corpuscular Hemoglobin Concent 34 32-36 g/dL Red Cell Distribution Width 14.4 10.0-14.5 % Platelet Count 273 130-400 10^3/uL Mean Platelet Volume 9.5 9.0-12.2 fL Immature Granulocyte % (Auto) 1 % Neutrophils (%) (Auto) 67 42-75 % Lymphocytes (%) (Auto) 22 12-44 % Monocytes (%) (Auto) 8 0-12 % Eosinophils (%) (Auto) 2 0-10 % Basophils (%) (Auto) 0 0-10 % Neutrophils # (Auto) 6.9 1.8-7.8 10^3/uL Lymphocytes # (Auto) 2.3 1.0-4.0 10^3/uL Monocytes # (Auto) 0.8 0.0-1.0 10^3/uL Eosinophils # (Auto) 0.2 0.0-0.3 10^3/uL Basophils # (Auto) 0.0 0.0-0.1 10^3/uL Immature Granulocyte # (Auto) 0.1 0.0-0.1 10^3/uL Sodium Level 137 135-145 MMOL/L Potassium Level 3.9 3.6-5.0 MMOL/L Chloride Level 105 98-107 MMOL/L Carbon Dioxide Level 22 21-32 MMOL/L Anion Gap 10 5-14 MMOL/L Blood Urea Nitrogen 14 7-18 MG/DL Creatinine 0.87 0.60-1.30 MG/DL Estimat Glomerular Filtration Rate 116 BUN/Creatinine Ratio 16 Glucose Level 105 70-105 MG/DL Calcium Level 8.8 8.5-10.1 MG/DL Corrected Calcium 8.7 8.5-10.1 MG/DL Total Bilirubin 0.2 0.1-1.0 MG/DL Aspartate Amino Transf (AST/SGOT) 24 5-34 U/L Alanine Aminotransferase (ALT/SGPT) 44 0-55 U/L Alkaline Phosphatase 90 40-136 U/L Total Protein 7.0 6.4-8.2 GM/DL Albumin 4.1 3.2-4.5 GM/DL Lactic Acid Level 0.91 0.50-2.00 MMOL/L My Orders Orders - ALEKSANDRA QUIROZ MD Comprehensive Metabolic Panel (03/09/22 07:46) Lipase (03/09/22 07:46) Ua Culture If Indicated (03/09/22 07:46) Ed Iv/Invasive Line Start (03/09/22 07:46) Cbc With Automated Diff (03/09/22 07:46) Ct Abdomen/Pelvis W (03/09/22 07:46) Lactic Acid Analyzer (03/09/22 07:46) Stool Culture (03/09/22 07:46) Fecal Wbc (03/09/22 07:46) C Difficile Ag + Toxin A/B. (03/09/22 07:46) Isolation Central Supply Req (03/09/22 07:46) Ns Iv 1000 Ml (Sodium Chloride 0.9%) (03/09/22 07:47) Ketorolac Injection (Toradol Injection) (03/09/22 07:47) Pantoprazole Injection (Protonix Injecti (03/09/22 07:47) Ondansetron Injection (Zofran Injectio (03/09/22 07:47) Iohexol Injection (Omnipaque 350 Mg/Ml 1 (03/09/22 08:15) Received Contrast (Hold Metformin- Contr (03/09/22 08:15) Sodium Chloride Flush (Catheter Flush Sy (03/09/22 08:15) Ns (Ivpb) (Sodium Chloride 0.9% Ivpb Bag (03/09/22 08:15) Hs C Reactive Protein (03/09/22 07:13) Medications Given in ED Current Medications Medications Dose Ordered Sig/Marla Route Start Time Stop Time Status Last Admin Dose Admin Iohexol 100 ml ONCE ONCE IV 03/09/22 08:15 03/09/22 08:25 DC 03/09/22 08:14 100 ML Sodium Chloride 10 ml NEEDED PRN IV 03/09/22 08:15 03/09/22 10:13 DC 03/09/22 08:14 10 ML Sodium Chloride 100 ml ONCE ONCE IV 03/09/22 08:15 03/09/22 08:25 DC 03/09/22 08:14 80 ML Vital Signs/I&O 03/09/22 07:02 Temp 36.3 Pulse 96 Resp 17 B/P (MAP) 152/80 (104) O2 Delivery Room Air Blood Pressure Mean: 104 Progress Progress Note #1: Progress Note Try to obtain records from [facility] since the stool studies and blood work yesterday. Order blood work and if he has more stool could repeat stool studies today. Try to obtain a CT scan of his abdomen pelvis to evaluate for possible diverticulitis, colitis, bowel obstruction, ischemic colitis. Give IV fluids normal saline 1 L bolus for hydration, Zofran 4 mg IV for nausea and vomiting, Toradol 30 mg IV for pain, Protonix 40 mg IV for burning sensation in the right upper quadrant Progress Note #2: Progress Note Labs did not show any acute significant normality on CBC, chemistry. CT scan of the abdomen pelvis with IV contrast shows no acute process. Appendix is seen and is normal. Patient reports improvement in symptoms with treatment here in the ED. He is tolerating oral intake without emesis or diarrhea. Counseled patient that this could still be a result of something he ate irritating his gut or could be a viral or bacterial infection. Consider taking probiotics to help replace the good bacteria in the gut. Especially since he had taken amoxicillin recently. Discharge patient on Protonix to help with GERD and reflux, Bentyl to help with abdominal pain and cramping, Zofran if needed for nausea and vomiting. Note to be off work today since he missed work to come here. Diagnostic Imaging Diagonstic Imaging: CT Plain Films/CT/US/NM/MRI: abdomen, pelvis Comments NAME: MAIDA TSAI ASHIA MED REC#: [id number] PT STATUS: REG ER : 1990 PHYSICIAN: ALEKSANDRA QUIROZ MD ADMIT DATE: 03/09/22/ER FS Draft Date of Exam:03/09/22 CT ABDOMEN/PELVIS W EXAMINATION: CT abdomen and pelvis with intravenous contrast. TECHNIQUE: Multiple contiguous axial images were obtained through the abdomen and pelvis after the uneventful administration of intravenous contrast. All CT scans use one or more of the following dose optimizing techniques: automated exposure control, MA and/or KvP adjustment based on patient size and exam type or iterative reconstruction. HISTORY: Right-sided abdominal pain. Nausea and vomiting. COMPARISON: None available. FINDINGS: The heart is unremarkable. The included lung bases are clear. The liver, spleen, pancreas, adrenal glands, and kidneys have a normal appearance. The gallbladder is surgically absent. There is no pathologically enlarged mesenteric or retroperitoneal adenopathy. The bowel loops are nondilated. The appendix is visualized in the right lower quadrant and has a normal appearance. There is no free fluid or free air. No acute osseous abnormalities. There is grade 1 anterolisthesis of L5 on S1 with bilateral pars defects at L5. Ureters and bladder are grossly normal. There is no free air, loculated collection, or adenopathy in the pelvis. IMPRESSION: 1. No acute abnormalities in the abdomen and pelvis. No bowel obstruction, free fluid, or free air. Normal appendix. Dictated on workstation # [id number] Dict: 03/09/22 0826 Trans: 03/09/22 0830 YOSELIN [id number] Interpreted by: HOMER HANNON DO Electronically signed by: Reviewed: Reviewed by Me Departure Impression Primary Impression: Right sided abdominal pain Additional Impression: Nausea vomiting and diarrhea Disposition: 01 HOME, SELF-CARE Condition: Improved Departure-Patient Inst. Decision time for Depature: 09:59 Referrals: KILEY ZEE MD (PCP/Family) Primary Care Physician Patient Instructions: Abdominal Pain, Adult ED, Acid Reflux and GERD in Adults (DC), Diarrhea, Adult ED, Full Liquid Diet, Nausea and Vomiting, Adult ED Add. Discharge Instructions: Follow a liquid diet for the next 24 to 48 hours. After that if you are tolerating that well you could advance to bland and then regular food. For pain and cramping in the belly you could use the Bentyl or dicyclomine medicine. If you are having nausea you could use the dissolving Zofran tablets. Consider taking an acid high pressure kettle operator such as Protonix to help with the burning pain in your stomach if that is partly from reflux. Check back with clinic and with the [facility] to follow-up on your cultures of the stool specimens from urgent care. If this shows that you needed antibiotics or other treatments they would know in the next 24 to 48 hours as the results start to come in. Since she recently took antibiotics consider taking some probiotics or at least yogurt with active cultures to try and help replace the good bacteria in your gut that helps with digestion. This could also help with your diarrhea and abdominal pain. All discharge instructions reviewed with patient and/or family. Voiced understanding. Scripts Ondansetron (Ondansetron Odt) 4 Mg Tab.rapdis 4 MG PO Q6H PRN for NAUSEA/VOMITING for 3 Days, #12 TAB 0 Refills Prov: ALEKSANDRA QUIROZ MD 03/09/22 Dicyclomine HCl (Dicyclomine HCl) 20 Mg Tablet 20 MG PO QID PRN for abdominal pain for 7 Days, #28 TAB 0 Refills Prov: ALEKSANDRA QUIROZ MD 03/09/22 Pantoprazole Sodium (Pantoprazole Sodium) 40 Mg Tablet.dr 40 MG PO DAILY for Reflux for 30 Days, #30 TAB 0 Refills Prov: ALEKSANDRA QUIROZ MD 03/09/22 Work/School Note: Work Release Form Date Seen in the Emergency Department: Mar 09, 2022 Return to Work: Mar 10, 2022 Restrictions: Return-No Vomiting(24hrs) ALEKSANDRA QUIROZ MD Mar 09, 2022 08:35
[2022-03-09 09:00] LABS: CREATININE SERUM 0.87 MG/DL (0.60-1.30); POTASSIUM 3.9 MMOL/L (3.6-5.0)
[2022-03-09 09:01] LABS: ALBUMIN 4.1 GM/DL (3.2-4.5); BILIRUBIN,TOTAL 0.2 MG/DL (0.1-1.0); CALCIUM 8.8 MG/DL (8.5-10.1)
[2022-03-09 09:32] LABS: BACTERIA,URINE NEGATIVE /HPF; CALCIUM OXALATE CRYSTALS,UR FEW /LPF; SQUAMOUS EPITHELIAL CELL,UR RARE /HPF
[2022-03-09] MEDS ORDERED: DICY20TA PO (10:04)
[2022-03-09] MEDS ORDERED: ONDA4TAB11 PO (10:04)
[2022-03-09] MEDS ORDERED: PANT40TA52 PO (10:04)
[2022-03-09 10:13] VITALS: BP 133/87
== END 2022-03-09 10:13 | disposition home or self-care (01) ==
LOC: EDUNIT# 06:51 → ER FS 06:53
DX: R11.2 Nausea with vomiting, unspecified (principal); R19.7 Diarrhea, unspecified
CPT/HCPCS: 36415; 74177; 80053; 81000; 83605; 83690; 85025; 86141; Q9967

== ENCOUNTER 2022-03-15 00:48 | Emergency (ER) | payer SELFPAY ==
[~2022-03-15] VITALS: Ht 180.3 cm; Wt 150.1 kg
[~2022-03-15 00:48] MED LIST changes: +DICY20TA PO; +ONDA4TAB11 PO; +PANT40TA52 PO
[2022-03-15 00:54] VITALS: BP 157/84
--- NOTE | 2022-03-15 01:20 | ED Respiratory ---
General Chief Complaint: Respiratory Problems Stated Complaint: SOB Nursing Triage Note: Patient states that he started getting short of breath at approximately 20:30 last night. Patient has a history of asthma and used his rescue inhaler. Patient states that it didn't improve much. Patient then reports coughing and coughed up bloody sputum. Patient states that he got scared and came to the ER to be checked out. Patient denies sick contacts. Source: patient Exam Limitations: no limitations History of Present Illness Date Seen by Provider: Mar 15, 2022 Time Seen by Provider: 01:00 Initial Comments Patient is a 32-year-old male with recent dental extraction who presents with cough up of blood approximately 3 hours ago last night. Patient states he has asthma and uses inhaler then coughed soft brown blood. He became anxious. He denies fever chills, sweats and chest pain. Denies leg pain or swelling. Denies sacral pain. No other acute symptoms or complaints. Timing/Duration: just prior to arrival Severity: mild Prior Episodes/Possible Cause: other Modifying Factors: Improves With Other Associated Symptoms: other Allergies and Home Medications Allergies Coded Allergies: cefdinir (Verified Allergy, Unknown, 02/12/20) Patient Home Medication List Home Medication List Reviewed: Yes Aspirin (Aspirin) 325 Mg Tablet, 325 MG PO DAILY@0900 Prescribed by: LUI SHEN on 02/12/20 1600 Clindamycin HCl (Clindamycin HCl) 300 Mg Capsule, 300 MG PO QID Prescribed by: RAFITA MATTHEWS on 06/25/21 2258 Dicyclomine HCl (Dicyclomine HCl) 20 Mg Tablet, 20 MG PO QID PRN for abdominal pain Prescribed by: ALEKSANDRA QUIROZ on 03/09/22 1004 Famotidine (Famotidine) 20 Mg Tablet, 20 MG PO DAILY, (Reported) Entered as Reported by: JONATAN WHATLEY on 02/12/20 1421 Lisinopril/Hydrochlorothiazide (Lisinopril-Hctz 20-25 mg Tab) 1 Each Tablet, 1 EA PO DAILY, (Reported) Entered as Reported by: JONATAN WHATLEY on 02/12/20 1421 Ondansetron (Ondansetron Odt) 4 Mg Tab.rapdis, 4 MG PO Q6H PRN for NAUSEA/VOMITING Prescribed by: ALEKSANDRA QUIROZ on 03/09/22 1004 Pantoprazole Sodium (Pantoprazole Sodium) 40 Mg Tablet., 40 MG PO DAILY Prescribed by: ALEKSANDRA FISHRT on 03/09/22 1004 Review of Systems Review of Systems Constitutional: see HPI EENTM: see HPI Respiratory: see HPI Cardiovascular: see HPI Gastrointestinal: see HPI Genitourinary: see HPI Musculoskeletal: see HPI Skin: see HPI Psychiatric/Neurological: See HPI Hematologic/Lymphatic: See HPI Immunological/Allergic: see HPI All Other Systems Reviewed Negative Unless Noted: Yes Past Wwfhbbp-Ytatwf-Bmndci Hx Patient Social History Tobacco Use?: Yes Tobacco type used: Cigarettes Smoking Status: Current Everyday Smoker Substance use?: No Alcohol Use?: No Pt feels they are or have been: No Immunizations Up To Date First/Initial COVID19 Vaccinat: NA Seasonal Allergies Seasonal Allergies: No Past Medical History Surgery/Hospitalization HX: Cholecystectomy Surgeries: Yes ([place] teeth removal) Gallbladder Respiratory: No Cardiac: Yes Hypertension Neurological: No Genitourinary: No Gastrointestinal: No Musculoskeletal: No Endocrine: No HEENT: No Cancer: No Psychosocial: No Integumentary: No Blood Disorders: No Family Medical History Ventricular tachycardia 19 MOTHER Heart Disease, Cancer, CAD Under 55 Years Old, CAD Over 55 Years Old Adopted: Paternal history unknown Maternal History: Biological mother with v-tach and pacemaker placement in 30s Biological Uncle x2 with CAD and [place] with CABG in 50s Biological grandparents with CAD and HF Physical Exam Vital Signs - First Documented 03/15/22 00:54 Temp 36.5 Pulse 90 Resp 20 B/P (MAP) 157/84 (108) Pulse Ox 99 O2 Delivery Room Air Capillary Refill : Less Than 3 Seconds Height: 5'11.00" Weight: 3lbs. 11.0oz. 1.383771wk; 46.00 BMI Method:Stated General Appearance: WD/WN, no apparent distress Eyes: Bilateral Eye Normal Inspection, Bilateral Eye PERRL, Bilateral Eye EOMI HEENT: PERRL/EOMI, normal ENT inspection, other (Soft brown clots present in lower posterior left and right molar sockets. No active bleeding. ) Neck: non-tender, full range of motion Respiratory: chest non-tender, lungs clear, normal breath sounds Cardiovascular: normal peripheral pulses, regular rate, rhythm Extremities: non-tender Focused Exam Sepsis Stage: Ruled Out Progress/Results/Core Measures Suspected Sepsis SIRS Temperature: Pulse: 90 Respiratory Rate: 20 Blood Pressure 157 /84 Mean: 108 Results/Orders My Orders Orders - JULIO CAT DO Chest 1 View Ap/Pa Only (03/15/22 01:00) Vital Signs/I&O 03/15/22 00:54 Temp 36.5 Pulse 90 Resp 20 B/P (MAP) 157/84 (108) Pulse Ox 99 O2 Delivery Room Air Capillary Refill : Less Than 3 Seconds Blood Pressure Mean: 108 Departure Communication (Admissions) Patient with reassuring physical exam with swallowing blood being likely ex planation of patient's symptoms. No active hemoptysis or bright red blood on exam. No other symptoms or complaints. Impression Primary Impression: Encounter for medical screening examination Disposition: HOME, SELF-CARE Condition: Stable Departure-Patient Inst. Decision time for Depature: 01:19 Referrals: KILEY ZEE MD (PCP/Family) Primary Care Physician Patient Instructions: Cough, Adult (DC) Add. Discharge Instructions: You were evaluated in the emergency department with cough with bloody sputum. This is consistent with swallowed blood from recent dental procedure. No follow-up is required at this time. All discharge instructions reviewed with patient and/or family. Voiced unde rstanding. JULIO CAT DO Mar 15, 2022 01:20
--- NOTE | 2022-03-15 06:43 | Diagnostic Imaging Report ---
PATIENT HISTORY: SOA. TECHNIQUE: Single frontal view of the chest. COMPARISON: 04/15/2020 FINDINGS: The lung volumes are normal. No focal consolidation is seen. No large pleural effusion or pneumothorax is seen. The cardiomediastinal silhouette is normal in size and contour. No acute osseous abnormality is seen. IMPRESSION: No acute pulmonary abnormality seen. Dictated by: Dictated on workstation # [id number]
== END 2022-03-15 01:23 | disposition home or self-care (01) ==
LOC: EDUNIT# 00:48 → ER FS 00:51
DX: Z00.00 Encounter for general adult medical examination without abnormal findings (principal); F17.210 Nicotine dependence, cigarettes, uncomplicated
CPT/HCPCS: 71045

== ENCOUNTER 2022-03-15 20:43 | Emergency (ER) | payer SELFPAY ==
[~2022-03-15] VITALS: Ht 182.8 cm; Wt 149.9 kg
[2022-03-15 20:49] VITALS: BP 117/98
--- NOTE | 2022-03-15 21:03 | ED General ---
General Chief Complaint: General Problems/Pain Stated Complaint: COUGHING UP BLOOD Nursing Triage Note: Patient was seen in the ER earlier this morning for the same complaint. Patient is coughing up reddish/brown sputum. Patient is concerned that he has a blood clot and wants to get checked out. History of Present Illness Date Seen by Provider: Mar 15, 2022 Time Seen by Provider: 20:45 Initial Comments 32-year-old male presents because he still coughing up some mild reddish-brown sputum. Patient was just concerned because he went to make sure that maybe to have a blood clot or something else. Patient was seen earlier this morning and evaluated. It was determined that he likely just was coughing up some blood from recent dental procedure. Patient presented again because he still had a little bit of a reddish darkish sputum and was just a little scared because he has 4 kids at home. His symptoms have not worsened. He has no shortness of breath. Patient has no chest pain. He does not have any bright red blood or increase in amount. Allergies and Home Medications Allergies Coded Allergies: cefdinir (Verified Allergy, Unknown, 02/12/20) Patient Home Medication List Home Medication List Reviewed: Yes Aspirin (Aspirin) 325 Mg Tablet, 325 MG PO DAILY@0900 Prescribed by: LUI SHEN on 02/12/20 1600 Clindamycin HCl (Clindamycin HCl) 300 Mg Capsule, 300 MG PO QID Prescribed by: RAFITA MATTHEWS on 06/25/21 2258 Dicyclomine HCl (Dicyclomine HCl) 20 Mg Tablet, 20 MG PO QID PRN for abdominal pain Prescribed by: ALEKSANDRA QUIROZ on 03/09/22 1004 Famotidine (Famotidine) 20 Mg Tablet, 20 MG PO DAILY, (Reported) Entered as Reported by: JONATAN WHATLEY on 02/12/20 1421 Lisinopril/Hydrochlorothiazide (Lisinopril-Hctz 20-25 mg Tab) 1 Each Tablet, 1 EA PO DAILY, (Reported) Entered as Reported by: JONATAN WHATLEY on 02/12/20 1421 Ondansetron (Ondansetron Odt) 4 Mg Tab.rapdis, 4 MG PO Q6H PRN for NAUSEA/VOMITING Prescribed by: ALEKSANDRA QUIROZ on 03/09/22 1004 Pantoprazole Sodium (Pantoprazole Sodium) 40 Mg Tablet., 40 MG PO DAILY Prescribed by: ALEKSANDRA QUIROZ on 03/09/22 1004 Review of Systems Review of Systems Constitutional: No chills, No fever EENTM: see HPI Respiratory: see HPI, cough Cardiovascular: no symptoms reported Gastrointestinal: no symptoms reported Genitourinary: no symptoms reported Musculoskeletal: no symptoms reported Skin: no symptoms reported Psychiatric/Neurological: No Symptoms Reported Hematologic/Lymphatic: No Symptoms Reported Past Samzhmp-Fvkyqe-Afqzqo Hx Patient Social History Tobacco Use?: Yes Tobacco type used: Cigarettes Smoking Status: Current Everyday Smoker Substance use?: No Alcohol Use?: No Pt feels they are or have been: No Immunizations Up To Date First/Initial COVID19 Vaccinat: NA Seasonal Allergies Seasonal Allergies: No Past Medical History Surgery/Hospitalization HX: Cholecystectomy Surgeries: Yes ([place] teeth removal) Gallbladder Respiratory: No Cardiac: Yes Hypertension Neurological: No Genitourinary: No Gastrointestinal: No Musculoskeletal: No Endocrine: No HEENT: No Cancer: No Psychosocial: No Integumentary: No Blood Disorders: No Family Medical History Ventricular tachycardia 19 MOTHER Heart Disease, Cancer, CAD Under 55 Years Old, CAD Over 55 Years Old Adopted: Paternal history unknown Maternal History: Biological mother with v-tach and pacemaker placement in 30s Biological Uncle x2 with CAD and [place] with CABG in 50s Biological grandparents with CAD and HF Physical Exam Vital Signs Vital Signs - First Documented 03/15/22 20:49 Temp 36.6 Pulse 87 Resp 18 B/P (MAP) 117/98 (104) Pulse Ox 98 O2 Delivery Room Air Capillary Refill : Less Than 3 Seconds Height, Weight, BMI Height: 5'11.00" Weight: 3lbs. 11.0oz. 1.771193jp; 44.00 BMI Method:Stated General Appearance: No Apparent Distress, WD/WN HEENT: TMs Normal Neck: Non Tender, Supple Respiratory: Lungs Clear, Normal Breath Sounds Cardiovascular: Regular Rate, Rhythm, No Edema Gastrointestinal: Non Tender, Soft Neurologic/Psychiatric: Alert, Oriented x3, No Motor/Sensory Deficits Skin: Normal Color, Warm/Dry Progress/Results/Core Measures Suspected Sepsis SIRS Temperature: Pulse: 87 Respiratory Rate: 18 Blood Pressure 117 /98 Mean: 104 Results/Orders Vital Signs/I&O 6/20/22 20:49 Temp 36.6 Pulse 87 Resp 18 B/P (MAP) 117/98 (104) Pulse Ox 98 O2 Delivery Room Air Capillary Refill : Less Than 3 Seconds Blood Pressure Mean: 104 Progress Note : Progress Note Patient brought in a Kleenex with some brownish sputum with mild old blood in it. I spent approximately 15 minutes visiting with patient answering his questions. I did reassure him that is likely just old blood. He has not had any bright red blood or increase in amount. Patient was concerned about a blood clot and does not appear to have a blood clot at this time. He is normal heart rate, normal respiratory with no acute signs of distress. I did recommend that if he has any concerns to come back I am feel free to answer his questions. Also offered a CTA to evaluate for blood clot but he is comfortable at this time and agrees that it would not really be beneficial. Patient stable and discharged Departure Impression Primary Impression: Blood-tinged sputum Disposition: HOME, SELF-CARE Condition: Stable Departure-Patient Inst. Referrals: KILEY ZEE MD (PCP/Family) Primary Care Physician Patient Instructions: Coughing up Blood Add. Discharge Instructions: Return to the ER if you have concerns. If you develop bright red blood or increase in blood-tinged sputum with large amounts please return to the ER for further evaluation. Please consider stop smoking for long-term health benefits All discharge instructions reviewed with patient and/or family. Voiced understanding. KARLI PATTEN DO Mar 15, 2022 21:03
== END 2022-03-15 21:05 | disposition home or self-care (01) ==
LOC: EDUNIT# 20:43 → ER FS 20:44
DX: R04.2 Hemoptysis (principal); F17.210 Nicotine dependence, cigarettes, uncomplicated
CPT/HCPCS: 99282

== ENCOUNTER 2022-08-25 18:29 | Emergency (ER) | payer SELFPAY ==
[~2022-08-25] VITALS: Ht 180.3 cm; Wt 152.4 kg
[2022-08-25] MEDS ORDERED: RT-ALBUTEROL/IPRATROPIUM 3 ML (DUONEB) VIAL INH ONE (18:45)
--- NOTE | 2022-08-25 18:48 | ED Cough/URI ---
General Chief Complaint: Cough/Cold/Flu Symptoms Stated Complaint: TROUBLE BREATHING Source: patient Exam Limitations: no limitations History of Present Illness Date Seen by Provider: Aug 25, 2022 Time Seen by Provider: 18:35 Initial Comments 32-year-old male presents the emergency department today for shortness of breath. Symptoms started a couple of days ago. He was seen in [facility] to the emergency department and told he had the flu without any testing. They gave him codeine cough syrup, nebulized solution for his nebulizer that he had at home for childhood asthma, Zofran and prednisone. He has been taking them but due to financial reasons was not able to pick them up until today. He is been using his nebulizer every 4 hours today which is only helping intermittently. His main concern is the shortness of breath and wheezing at this point. He denies any fevers or chills, though he did have body aches and chills yesterday. No chest pain. No abdominal pain. No lung history as an adult though again he did have childhood asthma. Allergies and Home Medications Allergies Coded Allergies: cefdinir (Verified Allergy, Unknown, 02/12/20) Patient Home Medication List Home Medication List Reviewed: Yes Aspirin (Aspirin) 325 Mg Tablet, 325 MG PO DAILY@0900 Prescribed by: LUI SHEN on 02/12/20 1600 Clindamycin HCl (Clindamycin HCl) 300 Mg Capsule, 300 MG PO QID Prescribed by: RAFITA MATTHEWS on 06/25/21 2258 Dicyclomine HCl (Dicyclomine HCl) 20 Mg Tablet, 20 MG PO QID PRN for abdominal pain Prescribed by: ALEKSANDRA QUIROZ on 03/09/22 1004 Famotidine (Famotidine) 20 Mg Tablet, 20 MG PO DAILY, (Reported) Entered as Reported by: JONATAN WHATLEY on 02/12/20 1421 Lisinopril/Hydrochlorothiazide (Lisinopril-Hctz 20-25 mg Tab) 1 Each Tablet, 1 EA PO DAILY, (Reported) Entered as Reported by: JONATAN WHATLEY on 02/12/20 1421 Ondansetron (Ondansetron Odt) 4 Mg Tab.rapdis, 4 MG PO Q6H PRN for NAUSEA/VOMITING Prescribed by: ALEKSANDRA QUIROZ on 03/09/22 1004 Pantoprazole Sodium (Pantoprazole Sodium) 40 Mg Tablet.dr, 40 MG PO DAILY Prescribed by: ALEKSANDRA QUIROZ on 03/09/22 1004 Review of Systems Review of Systems Constitutional: fever EENTM: nose congestion Respiratory: cough, short of breath, wheezing Cardiovascular: no symptoms reported Gastrointestinal: no symptoms reported Genitourinary: no symptoms reported Musculoskeletal: joint pain Skin: no symptoms reported Psychiatric/Neurological: No Symptoms Reported Hematologic/Lymphatic: No Symptoms Reported Immunological/Allergic: no symptoms reported Past Zsntmod-Adpten-Ldgsxl Hx Patient Social History Tobacco Use?: Yes Tobacco type used: Cigarettes Smoking Status: Heavy Tobacco Smoker Smokeless Tobacco Frequency: Never a User Use of E-Cig and/or Vaping dev: No Use of E-Cig and/or Vaping Alexys: Never a User Substance use?: No Alcohol Use?: No Pt feels they are or have been: No Immunizations Up To Date First/Initial COVID19 Vaccinat: NA Seasonal Allergies Seasonal Allergies: No Past Medical History Surgery/Hospitalization HX: Cholecystectomy Surgeries: Yes ([place] teeth removal) Gallbladder Respiratory: No Cardiac: Yes Hypertension Neurological: No Genitourinary: No Gastrointestinal: No Musculoskeletal: No Endocrine: No HEENT: No Cancer: No Psychosocial: No Integumentary: No Blood Disorders: No Family Medical History Reviewed Nursing Family Hx Ventricular tachycardia 19 MOTHER Heart Disease, Cancer, CAD Under 55 Years Old, CAD Over 55 Years Old Adopted: Paternal history unknown Maternal History: Biological mother with v-tach and pacemaker placement in 30s Biological Uncle x2 with CAD and [place] with CABG in 50s Biological grandparents with CAD and HF Physical Exam Vital Signs - First Documented 08/25/22 18:34 Temp 38.0 Pulse 114 Resp 20 B/P (MAP) 176/83 (114) O2 Delivery Room Air Capillary Refill : Height: 5'11.00" Weight: 3lbs. 11.0oz. 1.993012le; 44.00 BMI Method:Stated General Appearance: WD/WN, no apparent distress HEENT: PERRL/EOMI, normal ENT inspection, TMs normal, pharynx normal Neck: non-tender, full range of motion, supple, normal inspection Respiratory: chest non-tender, no respiratory distress, other (Mild tachypnea. Diffuse inspiratory and expiratory wheezing bilaterally) Cardiovascular: regular rate, rhythm, no edema, no murmur Gastrointestinal: normal bowel sounds, non tender, soft, no organomegaly Extremities: normal range of motion, non-tender, normal inspection Neurologic/Psychiatric: alert, normal mood/affect, oriented x 3 Skin: normal color, warm/dry Lymphatic: no adenopathy Progress/Results/Core Measures Suspected Sepsis SIRS Temperature: Pulse: Respiratory Rate: Blood Pressure / Mean: Results/Orders My Orders Orders - PAWEL GRAFF DO Albuterol/Ipra Inhalation Soln (Duoneb I (08/25/22 18:45) Svn Small Volume Nebulizer (08/25/22 18:44) Medications Given in ED Current Medications Medications Dose Ordered Sig/Marla Route Start Time Stop Time Status Last Admin Dose Admin Albuterol/ Ipratropium 3 ml ONCE ONCE INH 08/25/22 18:45 08/25/22 18:46 DC 08/25/22 18:49 3 ML Vital Signs/I&O 08/25/22 08/25/22 18:34 18:34 Temp 38.0 Pulse 114 Resp 20 B/P (MAP) 176/83 (114) O2 Delivery Room Air Room Air Capillary Refill : Departure Communication (Admissions) Patient is feeling much better after DuoNeb treatment. He is no longer wheezing on exam and his oxygen saturation is 99% on room air. He states this is the best he has felt in 3 to 4 days and is comfortable going home. He is already on steroid medicine, just started today and I anticipate this will likely continue to help as it builds in his system. He does have albuterol nebulizers to go home with and will continue to use these. He is discharged in stable condition with supportive care Impression Primary Impression: Viral syndrome Additional Impression: Wheezing Disposition: 01 HOME, SELF-CARE Condition: Stable Departure-Patient Inst. Referrals: KILEY ZEE MD (PCP/Family) Primary Care Physician Patient Instructions: Viral Upper Respiratory Infection, Adult (DC), Wheezing Add. Discharge Instructions: Continue to take the steroid medication as prescribed previously. Continue albuterol nebulizers at home. Return to the emergency department for any severe concerns. Follow-up with your primary doctor for any nonemergent needs All discharge instructions reviewed with patient and/or family. Voiced understanding. PAWEL GRAFF DO Aug 25, 2022 18:48
[2022-08-25 19:34] VITALS: BP 176/83
== END 2022-08-25 19:35 | disposition home or self-care (01) ==
LOC: EDUNIT# 18:29 → ER FS 18:30
DX: B34.9 Viral infection, unspecified (principal); J45.909 Unspecified asthma, uncomplicated; F17.210 Nicotine dependence, cigarettes, uncomplicated; F17.290 Nicotine dependence, other tobacco product, uncomplicated; Z79.51 Long term (current) use of inhaled steroids; Z28.310 Unvaccinated for COVID-19
CPT/HCPCS: 99282

== ENCOUNTER 2023-03-10 20:03 | Emergency (ER) | payer SELFPAY ==
[2023-03-10 20:12] LABS: BILIRUBIN,URINE NEGATIVE (NEGATIVE); CLARITY,URINE SL CLOUDY; COLOR,URINE YELLOW; GLUCOSE, URINE (UA) NEGATIVE (NEGATIVE); KETONES,URINE NEGATIVE (NEGATIVE); LEUKOCYTE ESTERASE ,URINE 1+ (NEGATIVE); NITRITE,URINE POSITIVE (NEGATIVE); PROTEIN,URINE 2+ (NEGATIVE)
--- NOTE | 2023-03-10 20:14 | ED GU-Male ---
General Chief Complaint: - Reproductive Stated Complaint: LOWER BACK/ABD/SIDE PAIN Source: patient Exam Limitations: no limitations History of Present Illness Date Seen by Provider: Mar 10, 2023 Time Seen by Provider: 20:05 Initial Comments 33-year-old male presents for painful urination. Symptoms started this morning and have been progressive. No fevers chills nausea vomiting. No penile discharge. No testicular pain. He does have some suprapubic pain as well. No new sexual partners. All other systems reviewed and negative except documented per HPI. Voice recognition software was used to help create this chart Allergies and Home Medications Allergies Coded Allergies: cefdinir (Verified Allergy, Unknown, 02/12/20) Patient Home Medication List Home Medication List Reviewed: Yes Aspirin (Aspirin) 325 Mg Tablet, 325 MG PO DAILY@0900 Prescribed by: LUI SHEN on 02/12/20 1600 Clindamycin HCl (Clindamycin HCl) 300 Mg Capsule, 300 MG PO QID Prescribed by: RAFITA MATTHEWS on 06/25/21 2258 Dicyclomine HCl (Dicyclomine HCl) 20 Mg Tablet, 20 MG PO QID PRN for abdominal pain Prescribed by: ALEKSANDRA QUIROZ on 03/09/22 1004 Famotidine (Famotidine) 20 Mg Tablet, 20 MG PO DAILY, (Reported) Entered as Reported by: JONATAN WHATLEY on 02/12/20 1421 Lisinopril/Hydrochlorothiazide (Lisinopril-Hctz 20-25 mg Tab) 1 Each Tablet, 1 EA PO DAILY, (Reported) Entered as Reported by: JONATAN WHATLEY on 02/12/20 1421 Ondansetron (Ondansetron Odt) 4 Mg Tab.rapdis, 4 MG PO Q6H PRN for NAUSEA/VOMITING Prescribed by: ALEKSANDRA QUIROZ on 03/09/22 1004 Pantoprazole Sodium (Pantoprazole Sodium) 40 Mg Tablet.dr, 40 MG PO DAILY Prescribed by: ALEKSANDRA QUIROZ on 03/09/22 1004 Review of Systems Review of Systems Constitutional: see HPI Past Kpriqmh-Ahbpzr-Sfneih Hx Patient Social History Tobacco Use?: Yes Tobacco type used: Cigarettes Smoking Status: Current Everyday Smoker Use of E-Cig and/or Vaping dev: No Substance use?: No Alcohol Use?: No Pt feels they are or have been: No Immunizations Up To Date First/Initial COVID19 Vaccinat: NA Seasonal Allergies Seasonal Allergies: No Past Medical History Surgery/Hospitalization HX: Cholecystectomy Surgeries: Yes ([place] teeth removal) Gallbladder Respiratory: No Cardiac: Yes Hypertension Neurological: No Genitourinary: No Gastrointestinal: No Musculoskeletal: No Endocrine: No HEENT: No Cancer: No Psychosocial: No Integumentary: No Blood Disorders: No Family Medical History Ventricular tachycardia 19 MOTHER Heart Disease, Cancer, CAD Under 55 Years Old, CAD Over 55 Years Old Adopted: Paternal history unknown Maternal History: Biological mother with v-tach and pacemaker placement in 30s Biological Uncle x2 with CAD and [place] with CABG in 50s Biological grandparents with CAD and HF Physical Exam Vital Signs Vital Signs - First Documented 03/10/23 20:06 Temp 37.6 Pulse 119 Resp 18 B/P (MAP) 179/91 (120) Pulse Ox 97 O2 Delivery Room Air Capillary Refill : Height, Weight, BMI Height: 5'11.00" Weight: 3lbs. 11.0oz. 1.328364qn; 46.00 BMI Method:Stated General Appearance: WD/WN, no apparent distress HEENT: normal ENT inspection, pharynx normal Cardiovascular: regular rate, rhythm, no murmur Respiratory: chest non-tender, lungs clear, normal breath sounds, no respiratory distress, no accessory muscle use Gastrointestinal: normal bowel sounds, non tender, soft, no organomegaly, no pulsatile mass Back: no CVA tenderness, no vertebral tenderness Progress/Results/Core Measures Suspected Sepsis SIRS Temperature: Pulse: Respiratory Rate: Blood Pressure / Mean: Results/Orders Lab Results Laboratory Tests Test 03/10/23 20:10 Range/Units Urine Color YELLOW Urine Clarity SL CLOUDY Urine pH 6.0 5-9 Urine Specific [place] 1.025 H 1.016-1.022 Urine Protein 2+ H NEGATIVE Urine Glucose (UA) NEGATIVE NEGATIVE Urine Ketones NEGATIVE NEGATIVE Urine Nitrite POSITIVE H NEGATIVE Urine Bilirubin NEGATIVE NEGATIVE Urine Urobilinogen 1.0 < = 1.0 MG/DL Urine Leukocyte Esterase 1+ H NEGATIVE Urine RBC (Auto) 3+ H NEGATIVE Urine RBC >100 H /HPF Urine WBC 50-100 H /HPF Urine Crystals NONE /LPF Urine Bacteria MODERATE H /HPF Urine Casts NONE /LPF Urine Mucus NEGATIVE /LPF Urine Culture Indicated YES My Orders Orders - PAWEL GRAFF DO Ua Culture If Indicated (03/10/23 20:07) Neis Jason Dna Urine Test (03/10/23 20:07) Urine Culture (03/10/23 20:10) Vital Signs/I&O 03/10/23 20:06 Temp 37.6 Pulse 119 Resp 18 B/P (MAP) 179/91 (120) Pulse Ox 97 O2 Delivery Room Air Capillary Refill : Departure Communication (Admissions) Patient has significant UTI. Denies any new sexual contacts notably so we will go ahead and treat him presumptively. He does have positive nitrite and leuk esterase, possible E. coli. No evidence of her systemic infection at this time. Given single dose of p.o. Cipro here and discharged with prescription to complete the course. Discharged in stable condition. Impression Primary Impression: Urinary tract infection Qualified Codes: N30.00 - Acute cystitis without hematuria Disposition: HOME, SELF-CARE Condition: Stable Departure-Patient Inst. Referrals: KILEY ZEE MD (PCP/Family) Primary Care Physician Patient Instructions: Urinary Tract Infection, Adult (DC) Add. Discharge Instructions: You are seen in the emergency department today for burning with urination. You have a urinary tract infection. Take the antibiotics as prescribed until they are gone. Your symptoms should start to improve in the next 24 hours. Return to the emergency department for any severe concerns. Follow-up with your primary doctor should your symptoms persist. All discharge instructions reviewed with patient and/or family. Voiced understanding. PAWEL GRAFF DO Mar 10, 2023 20:14
[2023-03-10 20:18] LABS: BACTERIA,URINE MODERATE /HPF; RBC,URINE >100 /HPF; WBC,URINE 50-100 /HPF
[2023-03-10] MEDS ORDERED: CIPROFLOXACIN 500 MG (CIPRO) TABLET PO STA (20:24)
[2023-03-10] MEDS ORDERED: CIPR500T5 PO (20:28)
[2023-03-10 20:30] VITALS: BP 179/91
== END 2023-03-10 20:30 | disposition home or self-care (01) ==
LOC: EDUNIT# 20:03 → ER FS 20:04
DX: N39.0 Urinary tract infection, site not specified (principal); F17.210 Nicotine dependence, cigarettes, uncomplicated; Z90.49 Acquired absence of other specified parts of digestive tract; Z88.1 Allergy status to other antibiotic agents; Z28.310 Unvaccinated for COVID-19
CPT/HCPCS: 36415; 81000; 87077; 87088; 87591; 99283

== ENCOUNTER 2023-03-27 17:27 | Emergency (ER) | payer SELFPAY ==
[~2023-03-27] VITALS: Ht 180 cm; Wt 147.0 kg
[~2023-03-27 17:27] MED LIST changes: +CIPR500T5 PO
[2023-03-27 17:35] VITALS: BP 162/72
[2023-03-27 17:38] LABS: COLOR,URINE YELLOW; GLUCOSE, URINE (UA) TRACE (NEGATIVE); KETONES,URINE NEGATIVE (NEGATIVE); LEUKOCYTE ESTERASE ,URINE 2+ (NEGATIVE); NITRITE,URINE POSITIVE (NEGATIVE); PROTEIN,URINE 2+ (NEGATIVE)
--- NOTE | 2023-03-27 17:39 | ED GU-Male ---
General Chief Complaint: Abdominal/GI Problems Stated Complaint: VOMITING; HEMATURIA; ROBERT FLANK PAIN History of Present Illness Date Seen by Provider: Mar 27, 2023 Time Seen by Provider: 17:35 Initial Comments [id number] male with PMH of morbid obesity/skin staph infections and recent UTI, is here with complaints of nausea. Patient had a UTI and was seen at [facility] on March 10, 2023, and was discharged with ciprofloxacin for his UTI. Patient never filled that prescription. Patient continued to have dysuria and went to urgent care yesterday and was prescribed Bactrim. Patient started taking Bactrim yesterday and today morning he started having nausea and vomiting after taking the Bactrim. Patient did not take the medication with food. De nies abdominal pain, fever and chills, chest pain, shortness of breath. Patient is continuing to have dysuria. While I was obtaining patient's history, patient all of a sudden became angry and started yelling and asking why I am asking him any questions, and that I should have reviewed the notes without wasting his time and asking him more questions. I explained to the patient that taking a thorough history is important in order for me to help him, and to assess what needs to be done. Patient then ripped off his blood pressure cuff and said he is leaving and does not need anything. I quickly explained risks and benefits to the patient, but patient wants to leave prior to a complete history being taken and he does not feel he needs to provide any more information. Allergies and Home Medications Allergies Coded Allergies: cefdinir (Verified Allergy, Unknown, 02/12/20) Patient Home Medication List Home Medication List Reviewed: Yes Aspirin (Aspirin) 325 Mg Tablet, 325 MG PO DAILY@0900 Prescribed by: LUI SHEN on 02/12/20 1600 Ciprofloxacin HCl (Ciprofloxacin HCl) 500 Mg Tablet, 500 MG PO BID Prescribed by: PAWEL GRAFF MD on 03/10/232027 Clindamycin HCl (Clindamycin HCl) 300 Mg Capsule, 300 MG PO QID Prescribed by: RAFITA MATTHEWS on 06/25/21 2258 Dicyclomine HCl (Dicyclomine HCl) 20 Mg Tablet, 20 MG PO QID PRN for abdominal pain Prescribed by: ALEKSANDRA QUIROZ on 03/09/22 1004 Famotidine (Famotidine) 20 Mg Tablet, 20 MG PO DAILY, (Reported) Entered as Reported by: JONATAN WHATLEY on 02/12/20 1421 Lisinopril/Hydrochlorothiazide (Lisinopril-Hctz 20-25 mg Tab) 1 Each Tablet, 1 EA PO DAILY, (Reported) Entered as Reported by: JONATAN WHATLEY on 02/12/20 1421 Ondansetron (Ondansetron Odt) 4 Mg Tab.rapdis, 4 MG PO Q6H PRN for NAUSEA/VOMITING Prescribed by: ALEKSANDRA QUIROZ on 03/09/22 1004 Pantoprazole Sodium (Pantoprazole Sodium) 40 Mg Tablet.dr, 40 MG PO DAILY Prescribed by: ALEKSANDRA QUIROZ on 03/09/22 1004 Review of Systems Review of Systems Constitutional: no symptoms reported, see HPI EENTM: no symptoms reported Respiratory: no symptoms reported Cardiovascular: no symptoms reported Gastrointestinal: nausea Genitourinary: dysuria Musculoskeletal: no symptoms reported Skin: no symptoms reported Psychiatric/Neurological: No Symptoms Reported Endocrine: No Symptoms Reported Hematologic/Lymphatic: No Symptoms Reported Past [id number] Hx Immunizations Up To Date First/Initial COVID19 Vaccinat: NA Second COVID19 Vaccination Joaquin: NA Third COVID19 Vaccination Date: NA Seasonal Allergies Seasonal Allergies: No Past Medical History Surgery/Hospitalization HX: Cholecystectomy Surgeries: Yes (Tensed teeth removal) Gallbladder Respiratory: No Cardiac: Yes Hypertension Neurological: No Genitourinary: No Gastrointestinal: No Musculoskeletal: No Endocrine: No HEENT: No Cancer: No Psychosocial: No Integumentary: No Blood Disorders: No Family Medical History Ventricular tachycardia 19 MOTHER Heart Disease, Cancer, CAD Under 55 Years Old, CAD Over 55 Years Old Adopted: Paternal history unknown Maternal History: Biological mother with v-tach and pacemaker placement in 30s Biological Uncle x2 with CAD and [place] with CABG in 50s Biological grandparents with CAD and HF Physical Exam Vital Signs Vital Signs - First Documented 03/27/23 17:35 Temp 37.1 Pulse 122 Resp 16 B/P (MAP) 162/72 (102) Pulse Ox 97 O2 Delivery Room Air Capillary Refill : Height, Weight, BMI Height: 5'11.00" Weight: 3lbs. 11.0oz. [id number]; 46.00 BMI Method:Stated General Appearance: WD/WN, no apparent distress, obese HEENT: PERRL/EOMI Neck: full range of motion Gastrointestinal: other (Patient left before I could do an abdominal examination.) Neurologic/Psychiatric: alert, oriented x 3 Skin: normal color Progress/Results/Core Measures Suspected Sepsis SIRS Temperature: Pulse: Respiratory Rate: Blood Pressure / Mean: Results/Orders Lab Results Laboratory Tests Test 03/27/23 17:31 Range/Units Urine Color YELLOW Urine Clarity CLOUDY Urine pH 6.0 5-9 Urine Specific [place] 1.025 H 1.016-1.022 Urine Protein 2+ H NEGATIVE Urine Glucose (UA) TRACE H NEGATIVE Urine Ketones NEGATIVE NEGATIVE Urine Nitrite POSITIVE H NEGATIVE Urine Bilirubin 1+ H NEGATIVE Urine Urobilinogen 4.0 < = 1.0 MG/DL Urine Leukocyte Esterase 2+ H NEGATIVE Urine RBC (Auto) 2+ H NEGATIVE Urine RBC /HPF Urine WBC TNTC H /HPF Urine Crystals NONE /LPF Urine Bacteria /HPF Urine Casts NONE /LPF Urine Mucus NEGATIVE /LPF Urine Culture Indicated YES My Orders Orders - ISRAEL LERMA MD Urinalysis (03/27/23 17:33) Urine Culture (03/27/23 17:31) Vital Signs/I&O 03/27/23 17:35 Temp 37.1 Pulse 122 Resp 16 B/P (MAP) 162/72 (102) Pulse Ox 97 O2 Delivery Room Air Capillary Refill : Progress Note : Progress Note 1. UTI: UA was done which showed a positive leukocyte esterase and positive nitrite with positive WBC and bacteria. Patient left AMA prior to allowing me to examine him appropriately in spite of risks and benefits being explained to him quickly as he was walking out. Patient was angry, volatile, and yelling. I was able to convey to the patient that he needs to take his antibiotic after eating, before he left. Departure Impression Primary Impression: UTI (urinary tract infection) Additional Impressions: Left against medical advice Nausea Disposition: 07 AGAINST MEDICAL ADVICE Condition: Against Medical Advice Departure-Patient Inst. Referrals: KILEY ZEE MD (PCP/Family) Primary Care Physician Patient Instructions: Dealing With Nausea and Vomiting From the Drugs You Take, Urinary Tract Infection, Adult ED ISRAEL LERMA MD Mar 27, 2023 17:39
[2023-03-27 17:40] LABS: BILIRUBIN,URINE 1+ (NEGATIVE); CLARITY,URINE CLOUDY; WBC,URINE TNTC /HPF
== END 2023-03-27 17:48 | disposition left against medical advice (07) ==
LOC: EDUNIT# 17:27 → ER FS 17:28
DX: N39.0 Urinary tract infection, site not specified (principal); R11.2 Nausea with vomiting, unspecified; E66.01 Morbid (severe) obesity due to excess calories; Z68.42 Body mass index [BMI] 45.0-49.9, adult
CPT/HCPCS: 81000; 87077; 87088; 87186; 99282

== ENCOUNTER → 2023-03-28 | Outpatient (CLI) | payer SELFPAY ==
[2023-03-28 13:39] LABS: BASOPHILS % (AUTO) 0 % (0-10); EOSINOPHILS % (AUTO) 0 % (0-10); HEMATOCRIT 42 % (40-54); HEMOGLOBIN 13.9 g/dL (13.3-17.7); LYMPHOCYTES # (AUTO) 1.3 10^3/uL (1.0-4.0); LYMPHOCYTES % (AUTO) 7 % (12-44); MEAN CORPUSCULAR HEMOGLOBIN 30 pg (25-34); MEAN CORPUSCULAR HGB CONC 33 g/dL (32-36); MEAN CORPUSCULAR VOLUME 92 fL (80-99); MEAN PLATELET VOLUME 9.9 fL (9.0-12.2); MONOCYTES % (AUTO) 11 % (0-12); NEUTROPHILS # (AUTO) 14.7 10^3/uL (1.8-7.8); NEUTROPHILS % (AUTO) 81 % (42-75); PLATELET COUNT 257 10^3/uL (130-400); WHITE BLOOD COUNT 18.1 10^3/uL (4.3-11.0)
[2023-03-28 14:22] LABS: ALBUMIN 3.6 GM/DL (3.2-4.5); BILIRUBIN,TOTAL 0.9 MG/DL (0.1-1.0); CALCIUM 9.1 MG/DL (8.5-10.1); CREATININE SERUM 1.28 MG/DL (0.60-1.30)
[2023-03-28 14:23] LABS: POTASSIUM 4.4 MMOL/L (3.6-5.0)
[2023-03-28 14:35] LABS: BAND NEUTROPHILS 13 %; LYMPHOCYTES % (MANUAL) 5 %; NEUTROPHILS % (MANUAL) 66 %
[2023-03-28 14:36] LABS: ATYPICAL LYMPHOCYTES 5 %; BASOPHILS % (MANUAL) 0 %; EOSINOPHILS % (MANUAL) 0 %; MONOCYTES % (MANUAL) 11 %; PLATELET ESTIMATE NORMAL; RBC MORPH NORMAL
== END ==
LOC: LABNPT 12:48
PROVIDERS: ATTEND Registered Nurse Emergency
DX: N10 Acute pyelonephritis (principal); R11.2 Nausea with vomiting, unspecified; R50.9 Fever, unspecified
CPT/HCPCS: 80053; 85007; 85027; 86141